=== PATIENT | male | born 1945 | race Caucasian/White ===

== ENCOUNTER 2017-03-01 12:23 | Inpatient (IN) | payer MEDICARE, MEDICAID ==
--- NOTE | 2017-03-01 12:50 | ED Physician Chart ---
ED Chief Complaint/HPI - Patient Information Date Seen:: 03/01/17 Time Seen:: 12:25 Chief Complaint:: ALOC History of Present Illness:: onset today while at [facility] and ALOC; no report of LOC, trauma, H/As, neck pain, C/P, SOB, Abd. Pain, A/N/V/D/C, fever, chills, or urinary s/s Allergies:: Allergies Allergy/AdvReac Type Severity Reaction Status Date / Time No Known Allergies Allergy Verified 03/01/17 12:43 Historian:: EMS Review:: Nurse's Note Reviewed, EMS run form Reviewed, Transfer documents Reviewed ED Review of Systems - Review of Systems General/Constitutional: Fever, No chills, No weight loss, No weakness, No diaphoresis, No edema, No loss of appetite Skin: No skin lesions, No rash, No bruising Head: No headache, No light-headedness Eyes: No loss of vision, No pain, No diplopia ENT: No earache, No nasal drainage, No sore throat, No tinnitus Neck: No neck pain, No swelling, No thyromegaly, No stiffness, No mass noted Cardio Vascular: No chest pain, No palpitations, No PND, No orthopnea, No edema Pulmonary: No SOB, Cough, No sputum, No wheezing GI: No nausea, No vomiting, No diarrhea, No pain, No melena, No hematochezia, No constipation, No hematemesis G/U: No dysuria, No frequency, No hematuria, No nacturia Musculoskeletal: No bone or joint pain, No back pain, No muscle pain Endocrine: No polyuria, No polydipsia Psychiatric: No prior psych history, No depression, No anxiety, No suicidal ideation, No homicidal ideation, No auditory hallucination, No visual hallucination Hematopoietic: No bruising, No lymphadenopathy Allergic/Immuno: No urticaria, No angioedema Neurological: No syncope, No focal symptoms, No weakness, No paresthesia, No headache, No seizure, No dizziness, Confusion, No vertigo ED Past Medical History - Past Medical History Obtainable: Yes Past Medical History: HTN, DM, CHF, Asthma/COPD, CVA/TIA, Dyslipidemia ( Dialysis Catheter Insertion; Tracheostomy), ESRD Family History: HTN Social History: Non Smoker, No Alcohol, No Drug Use, Single, Care Facility Surgical History: other Psychiatricy History: None Medication: Reviewed Family Medical History - Family Member Mother History Unknown: Yes ED Physical Exam - Physical Examination General/Constitutional: Awake, Well-developed, well-nourished, Alert, No distress, GCS 15, Non-toxic appearing, Ambulatory Head: Atraumatic Eyes: Lids, conjuctiva normal, PERRL, EOMI Skin: Nl inspection, No rash, No skin lesions, No ecchymosis, Well hydrated, No lymphadenopathy ENMT: External ears, nose nl, TM canals nl, Nasal exam nl, Lips, teeth, gums nl , Oropharynx nl, Tonsils nl Neck: Nontender, Full ROM w/o pain, No JVD, No nuchal rigidity, No bruit, No mass, No stridor Respiratory: Nl effort/Exclusion Other Respiratory comments:: Lungs: + Rales and Rhochi; L>R Cardio Vascular: No murmur, gallop, rubs, NL S1 S2, Carotid/Femoral/Distal pulses equal bilaterally Other Cardio Vascular comments:: Irregular Irregular Rhythm GI: No tenderness/rebounding/guarding, No organomegaly, No hernia, Normal BS's, Nondistended, No mass/bruits, No McBurney tenderness : No CVA tenderness Extremities: No tenderness or effusion, Full ROM, normal strength in all extremities, No edema, Normal digits & nails Neuro/Psych: Alert/oriented, DTR's symmetric, Normal sensory exam, Normal motor strength, Judgement/insight normal, Mood normal, Normal gait, No focal deficits Misc: Normal back, No paraspinal tenderness ED Labs/Radiology/EKG Results - Lab Results Comments:: WBC: 11.3. H//H: 10.8/32; BNP: 3190; Na+: 130; Glucose: 226; BUN: 80; CR: 4.3 - Radiology Results Comments:: CXR: + LLL Infiltrate - EKG Interpretations EKG Time:: 12:47 Rate & Rhythm: 119; Atrial Fibrillation Comments:: LBBB; non-specific st-t changes ED Septic Shock - . Is Septic Shock (SBP<90, OR Lactate>4 mmol\L) present?: No ED Reassessment (Disposition) - Reassessment Reassessment Condition:: Improved - Diagnosis Diagnosis:: Dx: PNA; ALOC; AMS; Atrial Fibrillation; Sepsis; UTI; Urospesis; Anemia; ESRD; Drhydration; Hyponatremia; CHF; Hyperglycemia; DM - Aftercare/Follow up Instructions Aftercare/Follow-Up Instructions:: Counseled pt regarding lab results/diagnosis & need follow up, Counseled pt & family regarding lab results/diagnosis & need follow up - Patient Disposition Discharge/Transfer:: Acute Care w/in this hosp Accepting Physician:: Dr. Laird Time Called:: 1500 Time Responded:: 15:00 Admitted to:: Telemetry Spoke to:: Dr. Laird Admitting Medical Physician:: Dr. Laird Condition at Disposition:: Stable, Improved
[2017-03-01 13:15] LABS: % EOSINOPHILS 5.1 % (0.0-5.0); % LYMPHOCYTES 8.8 % (20.0-50.0); % MONOCYTES 6.7 % (2.0-10.0); % NEUTROPHILS 79.4 % (40.0-80.0); HEMOGLOBIN 10.8 gm/dL (12-16); MEAN CELL VOLUME 87.1 fl (80-99); MEAN CORPUSCULAR HEMOGLOBIN 29.5 pg (27.0-31.0); MEAN CORPUSCULAR HGB CONC 33.8 pg (28.0-36.0); MEAN PLATELET VOLUME 8.7 fl; NEUTROPHILE ABSOLUTE 8.9 Th/cmm (1.8-8.0); PLATELET COUNT 208 Th/cmm (150-400); RED BLOOD COUNT 3.67 Mil/cmm (3.80-5.80); RED CELL DISTRIBUTION WIDTH 17.9 % (11.5-20.0); WHITE BLOOD COUNT 11.3 Th/cmm (4.8-10.8)
[2017-03-01] MEDS ORDERED: Levofloxacin 500mg/100mL 500 MG/100 ML BAG IV ONE ×2 (13:15→14:01)
[2017-03-01 13:28] LABS: ALB/GLOB RATIO 0.7 (1.0-1.8); ALKALINE PHOSPHATASE 173 U/L (34-104); ANION GAP 13.7 (7.0-16.0); BILIRUBIN,TOTAL 0.6 mg/dL (0.3-1.0); BUN/CREATININE RATIO 18.6; CALCIUM SERUM 9.4 mg/dL (8.6-10.3); CARBON DIOXIDE 25.8 mEq/L (21.0-31.0); CHLORIDE 94 mEq/L (98-107); CHOLESTEROL 82 mg/dL (<200); GLUCOSE 226 mg/dL (70-105); POTASSIUM SERUM 3.5 mEq/L (3.5-5.1); SGOT 31 U/L (13-39); SGPT/ALT 20 U/L (7-52); SODIUM SERUM 130 mEq/L (136-145); TRIGLYCERIDES 58 mg/dL (<150)
[2017-03-01 13:33] LABS: INR 1.12 (0.5-1.4); PROTHROMBIN TIME (TEST) 11.8 SECONDS (9.5-11.5)
[2017-03-01 13:40] LABS: BUN - UREA NITROGEN 80 mg/dL (7-25)
[2017-03-01 13:42] LABS: CREATININE - SERUM 4.3 mg/dL (0.7-1.3)
[2017-03-01 14:01] LABS: URINE BILIRUBIN SMALL (NEGATIVE); URINE BLOOD SMALL (NEGATIVE); URINE GLUCOSE (UA) NEGATIVE (NEGATIVE); URINE KETONE TRACE mg/dL (NEGATIVE); URINE PROTEIN 30 mg/dL (NEGATIVE); URINE UROBILINOGEN 0.2 E.U./dL (0.2 - 1.0)
[2017-03-01 14:09] LABS: URINE COLOR YELLOW
[2017-03-01 14:10] LABS: URINE BACTERIA 1+ /hpf (NONE SEEN); URINE EPITHELIAL CELLS OCCASIONAL /lpf (FEW); URINE RBC 25-50 /hpf (0-5)
[2017-03-01 14:11] LABS: URINE AMORPHOUS SEDIMENT FEW URATES (NONE SEEN)
[2017-03-01] MEDS ORDERED: Sodium Chloride 0.9% 1,000 ML IV SCH ×3 (16:35→19:45)
[2017-03-01 17:58] VITALS: BP 130/91
[2017-03-01] MEDS: Albuterol/Ipratropium Neb 3 ML AERS HHN SCH ×2 (19:01→22:48)
[2017-03-01] MEDS ORDERED: Diltiazem 5 mg/mL 5mL Vial IVP STA (19:18)
[2017-03-01] MEDS ORDERED: ONDANSETRON HCL 4 MG GT PRN (19:40)
[2017-03-01] MEDS ORDERED: Diltiazem 5 mg/mL 5mL Vial IVP ONE (20:30)
[2017-03-01] MEDS: Atorvastatin Calcium 10 MG TAB PO SCH (20:59)
[2017-03-01] MEDS ORDERED: Non-Formulary Item 1 EA (Atorvastatin Calcium [Lipitor] 20 MG) GT SCH (21:00)
[2017-03-01] MEDS ORDERED: Diltiazem 5 mg/mL 5mL Vial IVP PRN (21:31)
[2017-03-01] MEDS ORDERED: Guaifenesin DM 10 ML UDC ONE (23:42)
[2017-03-01] MEDS: Guaifenesin DM 10 ML UDC PO PRN (23:43)
[2017-03-02] MEDS ORDERED: Albumin 25% 25gm/100mL 25 GM/100 ML BTL IV PRN
[2017-03-02] MEDS ORDERED: methylPREDNISolone SS 40 mg Vial ONE ×2 (00:01→05:18)
[2017-03-02] MEDS: methylPREDNISolone SS 40 mg Vial IVP SCH ×4 (00:03→17:25)
[2017-03-02] MEDS: Albuterol/Ipratropium Neb 3 ML AERS HHN SCH ×6 (02:52→23:34)
--- NOTE | 2017-03-02 05:01 | Consultation ---
DATE OF CONSULTATION: 03/01/2017 HISTORY OF PRESENT ILLNESS: This 72-year-old male was seen and examined at the courtesy of Dr. Laird. The patient was admitted through Emergency Room and was brought to the Emergency Room with altered level of consciousness and shortness of breath. He was found to be in atrial fibrillation with rapid ventricular response. 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 He has chronic atrial fibrillation, has been on Xarelto, history of hypothyroidism, history of benign prostatic hypertrophy, history of GERD, chronic anemia, stage 3 sacral decubitus and stage 2 left trochanteric decubitus. He has a tracheostomy done, has been on chronic respiratory failure on ventilator. He has a PEG also and Perm-A-Cath and he was evaluated in the Emergency Room. He was given IV Cardizem as well as IV Lanoxin to control the heart rate. PAST MEDICAL HISTORY: As mentioned above. SOCIAL HISTORY: The patient denies any history smoking or drinking. FAMILY HISTORY: Unremarkable. ALLERGIES: Amiodarone. REVIEW OF SYSTEMS: The patient is unable to give any information. PHYSICAL EXAMINATION: VITAL SIGNS: Heart rate above 100, blood pressure is 116/70. SKIN: Normal. HEAD: Normocephalic. EYES: Conjunctivae pink. There is no icterus in the eye. Pupils equally reactive to light. NECK: There was no increased jugular venous distention or thyromegaly. No lymphadenopathy. Carotids equal both sides. CHEST: Bilaterally symmetrical, moved well with respirations. Respiratory movements equal both sides. Trachea is central. There is note to percussion. Breath sound; bilateral rales and rhonchi. CARDIOVASCULAR SYSTEM: PMI not well localized and no positional thrill. No parasternal heave. S1 normal, S2 physiologic. There was no S3, no rub. ABDOMEN: Soft. No tenderness, no rigidity. No guarding, no organomegaly. Bowel sounds normal. PEG in place. EXTREMITIES: No edema. Discoloration of lower extremities. Peripheral pulses diminished. No calf tenderness. IMPRESSION: Altered level of consciousness, atrial fibrillation with rapid ventricular response, very mild elevation of troponin level, diabetes mellitus, hypertension, end-stage renal disease, on hemodialysis; history of chronic obstructive pulmonary disease; hypothyroidism; benign prostatic hypertrophy; history of gastroesophageal reflux disease, chronic anemia, old cerebrovascular accident with right-sided hemiplegia; history of laparoscopic gastrostomy, chronic respiratory failure, decubitus ulcer status post PEG, status post Perm-A-Cath. Will ask the patient to continue Cardizem to control the heart rate. Will put him on regular doses of Cardizem, digoxin if needed. The patient is already on beta eliseo, to continue that 12.5 b.i.d. The patient is also on DEMETRIO inhibitor, Lasix, and nitrates. The patient's LDL was 39 only. We will get echocardiogram in the morning to evaluate left ventricular function and valvular structure. Repeat EKG and troponin, TSH. Further recommendation will be made depending on the rest of the tests available. [facility]# [id number]
[2017-03-02] MEDS ORDERED: Diltiazem 30 mg Tab ONE (05:17)
[2017-03-02] MEDS: Diltiazem 30 mg Tab PO SCH ×3 (05:19→20:44)
[2017-03-02 05:30] LABS: HEMATOCRIT 32.6 % (41.0-60); HEMOGLOBIN 11.3 gm/dL (12-16); MEAN CELL VOLUME 89.5 fl (80-99); MEAN CORPUSCULAR HEMOGLOBIN 30.9 pg (27.0-31.0); MEAN CORPUSCULAR HGB CONC 34.6 pg (28.0-36.0); MEAN PLATELET VOLUME 9.5 fl; NEUTROPHILE ABSOLUTE 13.6 Th/cmm (1.8-8.0); PLATELET COUNT 200 Th/cmm (150-400); RED BLOOD COUNT 3.64 Mil/cmm (3.80-5.80); RED CELL DISTRIBUTION WIDTH 17.7 % (11.5-20.0)
[2017-03-02 05:31] LABS: ALB/GLOB RATIO 0.7 (1.0-1.8); ALKALINE PHOSPHATASE 141 U/L (34-104); ANION GAP 12.1 (7.0-16.0); BILIRUBIN,TOTAL 0.7 mg/dL (0.3-1.0); BUN/CREATININE RATIO 17.5; CALCIUM SERUM 9.1 mg/dL (8.6-10.3); CHLORIDE 94 mEq/L (98-107); GLUCOSE 247 mg/dL (70-105); MAGNESIUM 2.4 mg/dL (1.9-2.7); PHOSPHOROUS 2.9 mg/dL (2.5-5.0); POTASSIUM SERUM 4.1 mEq/L (3.5-5.1); SGOT 22 U/L (13-39); SGPT/ALT 22 U/L (7-52); SODIUM SERUM 129 mEq/L (136-145)
[2017-03-02 05:42] LABS: BUN - UREA NITROGEN 84 mg/dL (7-25); CREATININE - SERUM 4.8 mg/dL (0.7-1.3)
[2017-03-02 05:43] LABS: WHITE BLOOD COUNT 14.4 Th/cmm (4.8-10.8)
[2017-03-02 06:51] LABS: BAND NEUTROPHILE 2 % (0-10); NEUTROPHILS 88 % (40-80); PLATELET ESTIMATE ADEQUATE (NORMAL); TOTAL CELLS COUNTED 100
[2017-03-02 08:24] LABS: INR 1.15 (0.5-1.4); PROTHROMBIN TIME (TEST) 12.1 SECONDS (9.5-11.5)
[2017-03-02] MEDS: Vitamin B Complex w/Vitamin C Tab GT SCH (08:46)
[2017-03-02] MEDS: Pantoprazole 40 mg/Packet GT SCH (08:46)
[2017-03-02] MEDS: Guaifenesin DM 10 ML UDC PO PRN ×2 (08:50→17:54)
--- NOTE | 2017-03-02 08:53 | Diagnostic Imaging Report ---
CHEST X-RAY: AP view INDICATION: pain COMPARISON: None FINDINGS: Right dialysis catheter is seen with tip in SVC. Tracheostomy tube is noted. Congestive changes are seen with small bilateral effusions. No focal consolidation identified. Cardiomegaly is noted. Degenerative changes of the spine are noted. IMPRESSION: Congestive changes with small bilateral effusions. Hazy infiltrate of the right lower lung zone cannot be excluded. Cardiomegaly. Right Dialysis catheter noted.
[2017-03-02] MEDS ORDERED: Pneumococcal Vaccine 0.5 mL Vial IM ONE (09:00)
--- NOTE | 2017-03-02 09:04 | Diagnostic Imaging Report ---
CHEST X-RAY: AP view INDICATION: Left infiltrates COMPARISON: Chest x-ray 03/01/2017 FINDINGS: Support devices are stable. Mild worsening of CHF is noted with small left effusion developing left lung hazy infiltrate. Cardiomegaly is noted. IMPRESSION: Mild worsening in CHF with small left effusion developing left lung infiltrates. Cardiomegaly.
--- NOTE | 2017-03-02 10:26 | Diagnostic Imaging Report ---
Head CT without intravenous contrast Indication: Altered level of consciousness Comparison: None Technique: Axial images were obtained from the vertex to the skull base without IV contrast. Coronal reconstructions were made. Total DLP: [id number], [id number] FINDINGS: Images of the brain obtained without contrast demonstrate no evidence of acute hemorrhage. Atrophy is noted. Old infarcts and encephalomalacia is seen throughout the left frontal lobe and extending to the left anterior parietal lobe. Additional areas of encephalomalacia of the left occipital lobe are noted. Calcifications are seen within these regions along the gyri which may have been sequela of old infarcts. Old left basal ganglia infarcts are also noted. The ventricles and basal cisterns are patent. No mass effect or midline shift. Atherosclerosis is noted. There is partial opacification of left sphenoid sinus. There is mucosal thickening of the paranasal sinuses. There is opacification of left mastoid air cells. Mild atherosclerosis is noted. IMPRESSION: No evidence of an acute intracranial hemorrhage. Areas of encephalomalacia throughout the left cerebral hemisphere likely due to old infarcts. Calcifications are seen in this region are also likely sequela of old infarcts. Old left basal ganglia infarct. Atrophy. Atherosclerotic vascular disease. Mild Paranasal sinus inflammatory disease greatest within the left sphenoid sinus. Left mastoid air cell disease.
--- NOTE | 2017-03-02 13:20 | History and Physical ---
History of Present Illness - HPI Chief Complaint: AMS and ALOC HPI: Patient was ready to get HD but had ALOC and was transferred to ER for Evaluation. In ER was found that patient had sepsis possible secondary to PNA, and A-fib. Vital Signs: Last Vital Signs Temp 97.8 F 03/02/17 12:00 Pulse 117 03/02/17 12:08 Resp 27 03/02/17 12:00 BP 133/84 03/02/17 12:00 Pulse Ox 100 03/02/17 12:00 Past Medical History Cardiovascular: Report: AFIB, CHF Pulmonary: Report: Other (Patient has a permanent tracheostomy on ventilator.) [employer] DIRECT[employer]: Report: No Pertinent Hx GI: Report: Other (PEG in place) Psych: Report: Anxiety Rheumatologic: Report: No pertinent Hx Infectious Disease: Report: No Pertinent Hx Renal/: Report: Chronic Renal Failure, Other (On HD) Endocrine: Report: Diabetes Dermatology: Report: No Pertinent Hx - Past Surgical History Past Surgical History: No pertinent Hx Family Medical History - Family Member Mother History Unknown: Yes Social History Smoke: No Alcohol: None Drugs: None Lives: Longterm Domestic Violence: Negative - Medications Home Medications: Home Medication Medication Instructions Recorded Type Acetaminophen [Tylenol 650 mg PO Q4HR PRN 03/01/17 History 650mg/20.3mL Suspension] Atorvastatin Calcium [Lipitor] 20 mg GT HS 03/01/17 History Bisacodyl [Dulcolax 10 Mg Supp] 10 RC DAILY PRN 03/01/17 History Lansoprazole [Prevacid] 30 mg GT DAILY 03/01/17 History Levetiracetam [Keppra] 500 GT Q12HRT 03/01/17 History Losartan Potassium [Cozaar] 50 mg GT Q12HR 03/01/17 History Metoclopramide [Reglan] 5 mg GT Q6HR 03/01/17 History Metoprolol Tartrate [Lopressor] 50 mg PO DAILY 03/01/17 History Ondansetron HCl [Zofran] 4 mg GT Q6HR 03/01/17 History Vitamin B Complex w/Vitamin C 1 tab GT DAILY 03/01/17 History amLODIPine Besylate [Norvasc] 5 GT Q12HR 03/01/17 History cloNIDine HCl [Catapres] 0.1 mg PO Q12HR 03/01/17 History - Allergies Allergies/Adverse Reactions: Allergies Allergy/AdvReac Type Severity Reaction Status Date / Time amiodarone Allergy Verified 03/02/17 08:20 Review of Systems - Review of Systems Constitutional: Report: Weakness Eyes: Report: No Significant ENT: Report: No Significant Respiratory: Report: Other (Tracheostomy in place) Cardiovascular: Report: Palpitations Gastrointestinal: Report: No Significant Genitourinary: Report: No Significant Musculoskeletal: Report: No Significant Skin: Report: No Significant Neurological: Report: Weakness Physical Exam - Physical Exam HEENT: Report: Ears Nose Throat within normal limits Neck: Report: Tracheostomy site noted to be clean Cardiovascular Systems: Report: Irregular rhythm was noted Respiratory: Report: Wheezing, Crackles Back: Report: Inspection of back is within normal limits. Extremities: Report: Non-tender to palpation. Skin: Report: Color of skin is within normal limits, Warm, Dry Neuro/Psych: Report: Other (Patient is anxious) - Lab Results All Lab Results last 24 hours: Laboratory Results - last 24 hr 03/02/17 03/02/17 03/02/17 04:30 04:30 04:30 WBC 14.4 H D RBC 3.64 L Hgb 11.3 L Hct 32.6 L MCV 89.5 MCH 30.9 MCHC Differential 34.6 RDW 17.7 Plt Count 200 MPV 9.5 Band Neutrophils % 2 Neutrophils (Manual) 88 H Lymphocytes 5 L Monocytes 5 Platelet Estimate ADEQUATE PT INR Sodium 129 L Potassium 4.1 Chloride 94 L Carbon Dioxide 27.0 Anion Gap 12.1 BUN 84 H* Creatinine 4.8 H* Est GFR ( Amer) TNP Est GFR (Non-Af Amer) TNP BUN/Creatinine Ratio 17.5 Glucose 247 H Calcium 9.1 Phosphorus 2.9 Magnesium 2.4 Total Bilirubin 0.7 AST 22 ALT 22 Alkaline Phosphatase 141 H Troponin I Total Protein 7.8 Albumin 3.1 L Globulin 4.7 Albumin/Globulin Ratio 0.7 L TSH 5.36 03/02/17 03/02/17 04:30 08:00 WBC RBC Hgb Hct MCV MCH MCHC Differential RDW Plt Count MPV Band Neutrophils % Neutrophils (Manual) Lymphocytes Monocytes Platelet Estimate PT 12.1 H INR 1.15 Sodium Potassium Chloride Carbon Dioxide Anion Gap BUN Creatinine Est GFR ( Amer) Est GFR (Non-Af Amer) BUN/Creatinine Ratio Glucose Calcium Phosphorus Magnesium Total Bilirubin AST ALT Alkaline Phosphatase Troponin I 0.08 H* D Total Protein Albumin Globulin Albumin/Globulin Ratio TSH - Assessment Assessment: Patient is awake, alert, calm. Dx: Sepsis possible secondary to PNA, Afib, ALOC , Anemia, ESRD, DM, Hyponatremia. - Plan Plan: Patient is in ICU due to A-Fib, on IV NS, AB, PEG nutrition, on Carvedilol, Diltiazem, and SNF meds. He is follow by Pulmonology, Nephro, Cardio. Will continue to monitor.
[2017-03-02] MEDS: cefTRIAXone 1 GM in Sodium Chloride 0.9% 50 ML IV SCH (16:01)
--- NOTE | 2017-03-02 16:03 | General Progress Note ---
Subjective - Review of Systems Service Date: 03/02/17 Subjective: more awake, on T-piece Objective - Results Result Diagrams: 03/02/17 04:30 03/02/17 04:30 Recent Labs: Laboratory Last Values WBC 14.4 Th/cmm (4.8-10.8) H D 03/02/17 04:30 RBC 3.64 Mil/cmm (3.80-5.80) L 03/02/17 04:30 Hgb 11.3 gm/dL (12-16) L 03/02/17 04:30 Hct 32.6 % (41.0-60) L 03/02/17 04:30 MCV 89.5 fl (80-99) 03/02/17 04:30 MCH 30.9 pg (27.0-31.0) 03/02/17 04:30 MCHC Differential 34.6 pg (28.0-36.0) 03/02/17 04:30 RDW 17.7 % (11.5-20.0) 03/02/17 04:30 Plt Count 200 Th/cmm (150-400) 03/02/17 04:30 MPV 9.5 fl 03/02/17 04:30 Neutrophils % 79.4 % (40.0-80.0) 03/01/17 13:07 Band Neutrophils % 2 % (0-10) 03/02/17 04:30 Lymphocytes % 8.8 % (20.0-50.0) L 03/01/17 13:07 Monocytes % 6.7 % (2.0-10.0) 03/01/17 13:07 Eosinophils % 5.1 % (0.0-5.0) H 03/01/17 13:07 Basophils % 0.0 % (0.0-2.0) 03/01/17 13:07 Neutrophils (Manual) 88 % (40-80) H 03/02/17 04:30 Lymphocytes 5 % (20-50) L 03/02/17 04:30 Monocytes 5 % (2-10) 03/02/17 04:30 Platelet Estimate ADEQUATE (NORMAL) 03/02/17 04:30 PT 12.1 SECONDS (9.5-11.5) H 03/02/17 08:00 INR 1.15 (0.5-1.4) 03/02/17 08:00 PTT (Actin FS) 25.8 SECONDS (26.0-38.0) L 03/01/17 13:07 Sodium 129 mEq/L (136-145) L 03/02/17 04:30 Potassium 4.1 mEq/L (3.5-5.1) 03/02/17 04:30 Chloride 94 mEq/L (98-107) L 03/02/17 04:30 Carbon Dioxide 27.0 mEq/L (21.0-31.0) 03/02/17 04:30 Anion Gap 12.1 (7.0-16.0) 03/02/17 04:30 BUN 84 mg/dL (7-25) H* 03/02/17 04:30 Creatinine 4.8 mg/dL (0.7-1.3) H* 03/02/17 04:30 Est GFR ( Amer) TNP 03/02/17 04:30 Est GFR (Non-Af Amer) TNP 03/02/17 04:30 BUN/Creatinine Ratio 17.5 03/02/17 04:30 Glucose 247 mg/dL (70-105) H 03/02/17 04:30 Hemoglobin A1c % 6.2 % (4.0-6.0) H 03/01/17 13:50 Whole Bld Lactic Acid 1.00 mmol/L (0.60-1.99) 03/01/17 13:16 Calcium 9.1 mg/dL (8.6-10.3) 03/02/17 04:30 Phosphorus 2.9 mg/dL (2.5-5.0) 03/02/17 04:30 Magnesium 2.4 mg/dL (1.9-2.7) 03/02/17 04:30 Total Bilirubin 0.7 mg/dL (0.3-1.0) 03/02/17 04:30 AST 22 U/L (13-39) 03/02/17 04:30 ALT 22 U/L (7-52) 03/02/17 04:30 Alkaline Phosphatase 141 U/L (34-104) H 03/02/17 04:30 Creatine Kinase 74 U/L (30-223) 03/01/17 13:07 Troponin I 0.07 ng/mL (0.01-0.05) H* D 03/02/17 13:05 B-Natriuretic Peptide 3190.0 pg/mL (5.0-100.0) H 03/01/17 13:07 Total Protein 7.8 gm/dL (6.0-8.3) 03/02/17 04:30 Albumin 3.1 gm/dL (4.2-5.5) L 03/02/17 04:30 Globulin 4.7 gm/dL 03/02/17 04:30 Albumin/Globulin Ratio 0.7 (1.0-1.8) L 03/02/17 04:30 Triglycerides 58 mg/dL (<150) 03/01/17 13:07 Cholesterol 82 mg/dL (<200) 03/01/17 13:07 LDL Cholesterol Direct 39 mg/dL (75-193) L 03/01/17 13:07 HDL Cholesterol 35 mg/dL (23-92) 03/01/17 13:07 TSH 5.36 uIU/ml (0.34-5.60) 03/02/17 04:30 Urine Source MIDSTREAM 03/01/17 13:58 Urine Color YELLOW 03/01/17 13:58 Urine Clarity HAZY (CLEAR) 03/01/17 13:58 Urine pH 5.0 (4.6 - 8.0) 03/01/17 13:58 Ur Specific [place] 1.020 (1.005-1.030) 03/01/17 13:58 Urine Protein 30 mg/dL (NEGATIVE) H 03/01/17 13:58 Urine Glucose (UA) NEGATIVE mg/dL (NEGATIVE) 03/01/17 13:58 Urine Ketones TRACE mg/dL (NEGATIVE) 03/01/17 13:58 Urine Blood SMALL (NEGATIVE) H 03/01/17 13:58 Urine Nitrate NEGATIVE (NEGATIVE) 03/01/17 13:58 Urine Bilirubin SMALL (NEGATIVE) H 03/01/17 13:58 Urine Urobilinogen 0.2 E.U./dL (0.2 - 1.0) 03/01/17 13:58 Ur Leukocyte Esterase TRACE (NEGATIVE) H 03/01/17 13:58 Urine RBC 25-50 /hpf (0-5) H 03/01/17 13:58 Urine WBC 6-10 /hpf (0-5) H 03/01/17 13:58 Ur Epithelial Cells OCCASIONAL /lpf (FEW) 03/01/17 13:58 Amorphous Sediment FEW URATES (NONE SEEN) 03/01/17 13:58 Urine Bacteria 1+ /hpf (NONE SEEN) H 03/01/17 13:58 Urine Mucus FEW /lpf (FEW) 03/01/17 13:58 - Physical Exam Vitals and I&O: Vital Signs Temp 97.8 F 03/02/17 12:00 Pulse 117 03/02/17 12:08 Resp 27 03/02/17 12:00 BP 133/84 03/02/17 12:00 Pulse Ox 98 03/02/17 14:00 Intake & Output 03/01/17 03/02/17 03/02/17 18:59 06:59 18:59 Intake Total 800 Output Total 400 Balance 400 Weight (lbs) 87.742 kg Intake: Oral 0 Tube Feeding 600 Other 200 Output: Urine 400 Other: # Bowel Movements 2 Stool Characteristics Liquid Brown Active Medications: Current Medications Acetaminophen (Tylenol 650mg/20.3ml Suspension) 650 mg PO Q4HR PRN PRN Reason: Pain or Fever >101 Stop: 04/30/17 19:39 Last Admin: 03/02/17 02:28 Dose: 650 mg Albuterol/Ipratropium (Duoneb Neb) 1.5 ml HHN Q6HR PENDING SALE TO [facility] Stop: 04/30/17 18:59 Atorvastatin Calcium (Lipitor) 20 mg PO HS PENDING SALE TO [facility] Stop: 04/30/17 20:59 Last Admin: 03/01/17 20:59 Dose: 20 mg Carvedilol (Coreg) 12.5 mg PO BID PENDING SALE TO [facility] Stop: 04/30/17 19:44 Last Admin: 03/02/17 10:33 Dose: Not Given Diltiazem HCl (Cardizem) 10 mg IVP Q4H PRN PRN Reason: HR ABOVE 130 Stop: 04/30/17 21:44 Diltiazem HCl (Cardizem) 30 mg PO Q8HR PENDING SALE TO [facility] Stop: 05/01/17 04:59 Last Admin: 03/02/17 12:08 Dose: 30 mg Guaifenesin/Dextromethorphan (Robitussin Dm) 5 ml PO Q6HR PRN PRN Reason: Cough Stop: 04/30/17 23:29 Last Admin: 03/02/17 08:50 Dose: 5 ml Levofloxacin (Levaquin Pb) 500 mg in 100 mls @ 100 mls/hr IV Q48HR PENDING SALE TO [facility] Stop: 05/02/17 08:59 Sodium Chloride (Nacl 0.9%) 1,000 mls @ 40 mls/hr IV .Q24H PRAVIN Stop: 04/30/17 16:34 Last Admin: 03/02/17 13:55 Dose: 40 mls/hr Albumin Human (Albuminar 25%) 25 gm in 100 mls @ 50 mls/hr IV PRN PRN PRN Reason: BP Support During HD Stop: 03/02/17 23:59 Ceftriaxone Sodium 1 gm/ (Sodium Chloride) 50 mls @ 100 mls/hr IV Q24HR PENDING SALE TO [facility] Stop: 05/01/17 12:44 Levetiracetam (Keppra) 500 mg NG BID PENDING SALE TO [facility] Stop: 05/01/17 16:59 Lorazepam (Ativan) 0.5 mg GT Q8H PRN; Protocol PRN Reason: Agitation Stop: 04/30/17 21:17 Last Admin: 03/02/17 08:46 Dose: 0.5 mg Lorazepam (Ativan) 1 mg IVP Q6HR PRN; Protocol PRN Reason: Anxiety Stop: 05/01/17 13:24 Last Admin: 03/02/17 13:42 Dose: 1 mg Methylprednisolone Sodium Succinate (Solu-Medrol) 40 mg IVP Q6HR PRAVNI Stop: 05/01/17 00:00 Last Admin: 03/02/17 11:13 Dose: 40 mg Miscellaneous (Clinical Monitoring) 1 ea MYKEL DAILY PRN PRN Reason: RENAL Stop: 04/30/17 17:00 Ondansetron HCl (Zofran Odt) 4 mg PO Q6H PRN PRN Reason: Nausea / Vomiting Stop: 04/30/17 20:01 Pantoprazole Sodium (Protonix) 40 mg GT DAILY PENDING SALE TO [facility] Stop: 05/01/17 08:59 Last Admin: 03/02/17 08:46 Dose: 40 mg Vitamin B Complex/Vit C/Folic Acid (Vitamin B Complex W/Vitamin C) 1 tab GT DAILY PRAVIN Stop: 05/01/17 08:59 Last Admin: 03/02/17 08:46 Dose: 1 tab Warfarin Sodium (Coumadin Per Pharmacy) 1 ea MC PRN PRN; Protocol PRN Reason: RX MONITORING Stop: 04/30/17 19:19 General: Alert, Mild distress HEENT: Atraumatic, PERRLA, EOMI Neck: Supple, +2 carotid pulse wo bruit Cardiovascular: Other (irregularly, irregular, tachy) Lungs: Other (rhonchi, congestion) Abdomen: Bowel sounds, Soft Extremities: no Edema Neurological: Sensation intact Skin: no Rash Psych/Mental Status: Mood NL Assessment/Plan - Assessment Assessment: ESRD on HD chronic A. Fib w/ RVR - Plan Plan: Lab - Result Diagrams 03/02/17 04:30 03/02/17 04:30 Current Medications Acetaminophen (Tylenol 650mg/20.3ml Suspension) 650 mg PO Q4HR PRN PRN Reason: Pain or Fever >101 Stop: 04/30/17 19:39 Last Admin: 03/02/17 02:28 Dose: 650 mg Albuterol/Ipratropium (Duoneb Neb) 1.5 ml HHN Q6HR PENDING SALE TO [facility] Stop: 04/30/17 18:59 Atorvastatin Calcium (Lipitor) 20 mg PO HS PENDING SALE TO [facility] Stop: 04/30/17 20:59 Last Admin: 03/01/17 20:59 Dose: 20 mg Carvedilol (Coreg) 12.5 mg PO BID PENDING SALE TO [facility] Stop: 04/30/17 19:44 Last Admin: 03/02/17 10:33 Dose: Not Given Diltiazem HCl (Cardizem) 10 mg IVP Q4H PRN PRN Reason: HR ABOVE 130 Stop: 04/30/17 21:44 Diltiazem HCl (Cardizem) 30 mg PO Q8HR PENDING SALE TO [facility] Stop: 05/01/17 04:59 Last Admin: 03/02/17 12:08 Dose: 30 mg Guaifenesin/Dextromethorphan (Robitussin Dm) 5 ml PO Q6HR PRN PRN Reason: Cough Stop: 04/30/17 23:29 Last Admin: 03/02/17 08:50 Dose: 5 ml Levofloxacin (Levaquin Pb) 500 mg in 100 mls @ 100 mls/hr IV Q48HR PENDING SALE TO [facility] Stop: 05/02/17 08:59 Sodium Chloride (Nacl 0.9%) 1,000 mls @ 40 mls/hr IV .Q24H PENDING SALE TO [facility] Stop: 04/30/17 16:34 Last Admin: 03/02/17 13:55 Dose: 40 mls/hr Albumin Human (Albuminar 25%) 25 gm in 100 mls @ 50 mls/hr IV PRN PRN PRN Reason: BP Support During HD Stop: 03/02/17 23:59 Ceftriaxone Sodium 1 gm/ (Sodium Chloride) 50 mls @ 100 mls/hr IV Q24HR PRAVIN Stop: 05/01/17 12:44 Levetiracetam (Keppra) 500 mg NG BID PRAVIN Stop: 05/01/17 16:59 Lorazepam (Ativan) 0.5 mg GT Q8H PRN; Protocol PRN Reason: Agitation Stop: 04/30/17 21:17 Last Admin: 03/02/17 08:46 Dose: 0.5 mg Lorazepam (Ativan) 1 mg IVP Q6HR PRN; Protocol PRN Reason: Anxiety Stop: 05/01/17 13:24 Last Admin: 03/02/17 13:42 Dose: 1 mg Methylprednisolone Sodium Succinate (Solu-Medrol) 40 mg IVP Q6HR PRAVIN Stop: 05/01/17 00:00 Last Admin: 03/02/17 11:13 Dose: 40 mg Miscellaneous (Clinical Monitoring) 1 ea MC DAILY PRN PRN Reason: RENAL Stop: 04/30/17 17:00 Ondansetron HCl (Zofran Odt) 4 mg PO Q6H PRN PRN Reason: Nausea / Vomiting Stop: 04/30/17 20:01 Pantoprazole Sodium (Protonix) 40 mg GT DAILY PRAVIN Stop: 05/01/17 08:59 Last Admin: 03/02/17 08:46 Dose: 40 mg Vitamin B Complex/Vit C/Folic Acid (Vitamin B Complex W/Vitamin C) 1 tab GT DAILY PRAVIN Stop: 05/01/17 08:59 Last Admin: 03/02/17 08:46 Dose: 1 tab Warfarin Sodium (Coumadin Per Pharmacy) 1 ea PRN PRN; Protocol PRN Reason: RX MONITORING Stop: 04/30/17 19:19 Lab - Result Diagrams 03/02/17 04:30 03/02/17 04:30 pt. was dialyzed today & tolerated it well reschedule for HD in am due to increasing CHF on CXR F/U electrolytes, cbc in am Nutritional Asmnt/Malnutr-PDOC - Dietary Evaluation Malnutrition Findings (Please click <Entered> for more info): Nutritional Asmnt/Malnutrition Start: 03/02/17 12: 17 Text: Status: Complete Freq: Document 03/02/17 12:17 ARMANDO (Rec: 03/02/17 12:33 LCNICOLEG [email or web address]) Nutritional Asmnt/Malnutrition Patient General Information Nutritional Screening High Risk Consult Diagnosis PNA, ALOC, AMS, A fib, Sepsis, UTI, Anemia, dyhydration Pertinent Medical Hx/Surgical Hx HTN, DM, CHF, asthma/COPD, CVA /TIA, dyslipidemia, ESRD on dialysis, PEG Subjective Information Consult received for high blood glucose. Pt seen resting in bed, not able to communicate, on dialysis during the time of visit. Not able to perform physical exam at this time, pt appeared no fat/muscle wasting on shouder. Spoke with RN, pt is tolerating TF well, no residual noted. Current Diet Order/ Nutrition Support Novosource Renal at 60ml/hr x 20hr daily, providing 2400kcal and 109g pro Pertinent Medications Nacl IV, Vit B, Vit C, folic acid, warfarin Pertinent Labs 03/02 Na 129L, Cl 94L, BUN 84H , Cr 4.9H, Glu 247, A1c 6.2, Alb 3.1L Nutritional Hx/Data Height 1.75 m Height (Calculated Centimeters) 175.3 Current Weight (lbs) 87.747 kg Weight (Calculated Kilograms) 87.7 Weight (Calculated Grams) 15474.4 [place] Body Weight 160 % [place] Body Weight 120 Body Mass Index (BMI) 28.5 GI Symptoms GI Symptoms None Last BM 03/02 x 2 Skin Integrity/Comment: reddened area on left chest, left foot, pressure area on coccyx Estimated Nutritional Goals BEE in Kcals: Using Current wt Calories/Kcals/Kg 30-32 Kcals Calculated [id number] Protein: Using Current wt Protein g/k-1.2 Protein Calculated 88-106 Fluid: ml [id number] or per MD Nutritional Problem 1. Problem Problem altered nutrition related labs values Etiology hx of ESRD and DM Signs/Symptoms: BUN 84H, Cr 4.9H, Glu 247, A1c 6.2 Malnutrition Alert Protein-Calorie Malnutrition N/A Is there a minimum of two criteria No selected? Query Text:Check all the applicable criteria. A minimum of two criteria are recommended for diagnosis of either severe or non-severe malnutrition. Intervention/Recommendation Comments 1. continue with current TF regimen. It provides 1200ml total volume, 2400kcal, 109g protein, 860ml water, meeting 100% of nutritional needs. 2. Monitor TF rate, tolerance, labs, skin integrity and wt daily 3. adjust insulin as needed for optimal glycemic control 4. F/U as high risk in 2-3 days, 03/04-03/05 Expected Outcomes/Goals Expected Outcomes/Goals 1. pt to meet at least 75% of nutritional needs via nutrition support with tolerance 2. wt stability, skin to remain intact, labs to improve
[2017-03-02] MEDS ORDERED: Albuterol/Ipratropium Neb 3 ML AERS HHN ONE (16:43)
[2017-03-02] MEDS: Levetiracetam 500 mg/5mL 5mL UDC NG SCH (17:25)
--- NOTE | 2017-03-02 17:38 | Consultation ---
DATE OF CONSULTATION: 03/01/2017 REFERRING PHYSICIAN: Dr. Mart. Thank you very much for this consultation. HISTORY OF PRESENT ILLNESS: This is a 72-year-old male with history of CVA, COPD, chronic respiratory failure, chronic tracheostomy, presents with shortness of breath, congestion, admitted for further treatment and management. The patient appears to be doing okay now, still have some secretions. The patient is on dialysis and end-stage renal disease. PAST MEDICAL HISTORY: As above. SOCIAL HISTORY: correction resident. REVIEW OF SYSTEMS: Unable to obtain because of the patient's condition. PHYSICAL EXAMINATION: GENERAL: The patient is awake, but not in acute distress. VITAL SIGNS: Temperature 98.4, pulse of 62, respiration is 16, blood pressure 94/69, saturation 100%. HEENT: Atraumatic, normocephalic. Pupils react to light and accommodation. Ears, nose, and throat normal. NECK: Supple. No JVD. CHEST: There is rhonchi in bases. HEART: Regular. ABDOMEN: Soft. EXTREMITIES: No edema. LABORATORY DATA: WBC is 11.3, hemoglobin is 10.8. Sodium is 133.5, creatinine 4.3. I do not see a chest x-ray on this patient. IMPRESSION: 1. Respiratory failure. 2. Possible pneumonia. 3. Dysphagia. 4. Weakness. PLAN: 1. IV antibiotics. 2. Nebulizer treatment. 3. Pulmonary toilet. 4. Tracheostomy care. JOB# [id number]
--- NOTE | 2017-03-02 19:20 | Consultation ---
DATE OF CONSULTATION: 03/01/2017 JEWEL SAWYER: Hector Crawford M.D. REASON FOR CONSULTATION: Electrolyte imbalance and fluid management. HISTORY OF PRESENT ILLNESS: This is a 72-year-old male with past medical history of end-stage renal disease, on hemodialysis, who was brought in because of altered level of consciousness. A few hours prior to admission, the patient was noted by dialysis staff to develop altered level of consciousness. He was then brought to the Emergency Room. His white count was 11.3 with a temperature of 98.8 degrees. Per ER physician, chest x-ray revealed left lower lobe infiltrate. PAST MEDICAL HISTORY: 1. End-stage renal disease, on hemodialysis. 2. Type 2 diabetes mellitus. 3. Essential hypertension. 4. Status post cerebrovascular accident with right hemiplegia. 5. COPD. 6. Chronic atrial fibrillation. 7. Hypothyroidism. 8. BPH. 9. GERD. 10. Anemia of chronic disease. 11. Stage III decubitus ulcer. 12. Stage II left trochanteric decubitus ulcer. 13. Respiratory failure on T-piece. PAST SURGICAL HISTORY: 1. Status post tracheostomy. 2. Status post PEG placement. 3. Status post Perm-A-Cath. CURRENT MEDICATIONS: He is currently on albuterol, ipratropium, levofloxacin. ALLERGIES: No known drug allergies. SOCIAL AND FAMILY HISTORY: I was unable to obtain directly from the patient because he remains nonverbal. REVIEW OF SYSTEMS: Again, I was not able to decipher directly from the patient because of above reasons. PHYSICAL EXAMINATION: GENERAL: The patient is quite stuporous, but arousable, mild tachypnea. VITAL SIGNS: His blood pressure is 130/91, pulse irregularly irregular at 120, temperature 98.2 degrees. SKIN: Good turgor, warm, no rash, no jaundice appreciated. HEENT: Head normocephalic, atraumatic. Eyes: Extraocular muscles intact. Pupils equal, round, reactive to light and accommodates. Anicteric sclerae, pale conjunctivae. Nose, midline nasal septum. Mouth, moist mucosa with poor dentition. NECK: Supple, no adenopathy, no thyromegaly, no bruits. Trachea palpated in the midline. Presence of tracheostomy tube on, T-piece. CHEST AND CARDIOVASCULAR: Irregularly irregular. S1, S2. No rub, murmur, or gallop appreciated. Point of maximal impulse fifth intercostal space, left midclavicular line. No abdominal or femoral bruits appreciated. LUNGS: Equal expansion. No use of accessory muscles. No supraclavicular retractions. Decreased breath sounds, rhonchi with some rales, but no wheezes appreciated. ABDOMEN: Mildly globular, soft, positive for bowel sounds. No bruits either diastolic or systolic. RECTAL: Lax sphincter tone. GENITOURINARY: Normal appearing male genitalia. MUSCULOSKELETAL: No effusions present in his joints, but unable to assess his range of motion. EXTREMITIES: No evidence of edema, cyanosis or clubbing with palpable femoral, but unable to fully appreciate popliteal and dorsalis pedis pulses. NEUROLOGIC: The patient is alert, verbal, motor is 5/5. Cranial nerves 3-12 intact. Sensory intact. LABORATORY DATA: Revealed sodium of 130, potassium 3.5, chloride 94, bicarbonate 25, BUN 18, creatinine of 4.3, glucose 226, calcium 9.4. Hemoglobin A1c 6.2%. Troponin 0.07, BNP of 3190, albumin 3.3. White count of 11.3, hemoglobin 10.8, hematocrit 32, platelets 206, polys 79.4%. PT 11.8. INR 1.12, PTT 25.8. IMPRESSION: 1. End-stage renal disease, on hemodialysis. 2. Altered level of consciousness during dialysis, possibly due to episodes of hypotension and also the arrhythmia. 3. AFib. Chronic AFib with rapid ventricular response. 4. Respiratory failure, on T-piece. 5. Elevated troponin secondary to renal failure. 6. Elevated BNP secondary to renal failure. 7. Left-sided healthcare-acquired pneumonia. 8. Type 2 diabetes mellitus with CKD. 9. Essential hypertension with CKD. 10. Status post CVA with right hemiplegia. 11. COPD. 12. Hypothyroidism. 13. BPH. 14. GERD. 15. Anemia of chronic kidney disease. 16. Stage 3 sacral decubitus ulcer. 17. Stage 2 left trochanteric decubitus ulcer. 18. Status post respiratory failure on a T-piece. PLAN: 1. Hemodialysis in a.m. 2. Administer Cardizem IV. 3. Stat anticoagulation. 4. CT scan of the head. 5. Cardiology consult. Thank you, Dr. Laird for this consult. I will follow the patient closely with you. JOB# [id number]
[2017-03-02] MEDS: Atorvastatin Calcium 10 MG TAB PO SCH (20:44)
[2017-03-03] MEDS: methylPREDNISolone SS 40 mg Vial IVP SCH ×5 (00:01→23:47)
[2017-03-03] MEDS: Guaifenesin DM 10 ML UDC PO PRN (02:37)
[2017-03-03] MEDS: Diltiazem 30 mg Tab PO SCH ×3 (05:17→21:52)
[2017-03-03 05:30] LABS: HEMATOCRIT 33.4 % (41.0-60); HEMOGLOBIN 11.5 gm/dL (12-16); MEAN CELL VOLUME 90.1 fl (80-99); MEAN CORPUSCULAR HGB CONC 34.4 pg (28.0-36.0); MEAN PLATELET VOLUME 8.8 fl; NEUTROPHILE ABSOLUTE 5.8 Th/cmm (1.8-8.0); PLATELET COUNT 169 Th/cmm (150-400); RED CELL DISTRIBUTION WIDTH 17.8 % (11.5-20.0)
[2017-03-03 05:39] LABS: WHITE BLOOD COUNT 6.2 Th/cmm (4.8-10.8)
[2017-03-03 05:43] LABS: ALB/GLOB RATIO 0.7 (1.0-1.8); ALKALINE PHOSPHATASE 139 U/L (34-104); ANION GAP 13.3 (7.0-16.0); BILIRUBIN,TOTAL 0.5 mg/dL (0.3-1.0); BUN - UREA NITROGEN 72 mg/dL (7-25); BUN/CREATININE RATIO 20.6; CALCIUM SERUM 9.3 mg/dL (8.6-10.3); CARBON DIOXIDE 26.3 mEq/L (21.0-31.0); CHLORIDE 94 mEq/L (98-107); CREATININE - SERUM 3.5 mg/dL (0.7-1.3); GLUCOSE 438 mg/dL (70-105); POTASSIUM SERUM 3.6 mEq/L (3.5-5.1); SGOT 14 U/L (13-39); SGPT/ALT 17 U/L (7-52); SODIUM SERUM 130 mEq/L (136-145)
[2017-03-03] MEDS: Albuterol/Ipratropium Neb 3 ML AERS HHN SCH ×3 (06:25→19:15)
[2017-03-03] MEDS: INSULIN ASPART SLIDING SCALE 100 UNITS/ML UNIT SUBQ SCH ×4 (06:40→23:22)
--- NOTE | 2017-03-03 08:20 | Diagnostic Imaging Report ---
Exam: Chest x-ray portable HISTORY: Shortness of breath. Findings: the study compared to previous one of the the earlier. The study demonstrates left lower lobe pneumonia and effusion unchanged compatible prior examination. The congestion somewhat subsided. Again tracheostomy tube and right subclavian catheter unchanged appearance. The visualized bony thorax intact. IMPRESSION: Unchanged appearance of left lower lobe pneumonia and effusion. Follow-up examination recommended.
--- NOTE | 2017-03-03 08:38 | General Progress Note ---
Subjective - Review of Systems Service Date: 03/03/17 Subjective: I am better Objective - Results Result Diagrams: 03/03/17 04:40 03/03/17 04:40 Recent Labs: Laboratory Last Values WBC 6.2 Th/cmm (4.8-10.8) D 03/03/17 04:40 RBC 3.70 Mil/cmm (3.80-5.80) L 03/03/17 04:40 Hgb 11.5 gm/dL (12-16) L 03/03/17 04:40 Hct 33.4 % (41.0-60) L 03/03/17 04:40 MCV 90.1 fl (80-99) 03/03/17 04:40 MCH 31.0 pg (27.0-31.0) 03/03/17 04:40 MCHC Differential 34.4 pg (28.0-36.0) 03/03/17 04:40 RDW 17.8 % (11.5-20.0) 03/03/17 04:40 Plt Count 169 Th/cmm (150-400) 03/03/17 04:40 MPV 8.8 fl 03/03/17 04:40 Neutrophils % 79.4 % (40.0-80.0) 03/01/17 13:07 Band Neutrophils % 2 % (0-10) 03/02/17 04:30 Lymphocytes % 8.8 % (20.0-50.0) L 03/01/17 13:07 Monocytes % 6.7 % (2.0-10.0) 03/01/17 13:07 Eosinophils % 5.1 % (0.0-5.0) H 03/01/17 13:07 Basophils % 0.0 % (0.0-2.0) 03/01/17 13:07 Neutrophils (Manual) 88 % (40-80) H 03/02/17 04:30 Lymphocytes 5 % (20-50) L 03/02/17 04:30 Monocytes 5 % (2-10) 03/02/17 04:30 Platelet Estimate ADEQUATE (NORMAL) 03/02/17 04:30 PT 12.1 SECONDS (9.5-11.5) H 03/02/17 08:00 INR 1.15 (0.5-1.4) 03/02/17 08:00 PTT (Actin FS) 25.8 SECONDS (26.0-38.0) L 03/01/17 13:07 Sodium 130 mEq/L (136-145) L 03/03/17 04:40 Potassium 3.6 mEq/L (3.5-5.1) 03/03/17 04:40 Chloride 94 mEq/L (98-107) L 03/03/17 04:40 Carbon Dioxide 26.3 mEq/L (21.0-31.0) 03/03/17 04:40 Anion Gap 13.3 (7.0-16.0) 03/03/17 04:40 BUN 72 mg/dL (7-25) H 03/03/17 04:40 Creatinine 3.5 mg/dL (0.7-1.3) H 03/03/17 04:40 Est GFR ( Amer) TNP 03/03/17 04:40 Est GFR (Non-Af Amer) TNP 03/03/17 04:40 BUN/Creatinine Ratio 20.6 03/03/17 04:40 Glucose 438 mg/dL (70-105) H 03/03/17 04:40 Hemoglobin A1c % 6.2 % (4.0-6.0) H 03/01/17 13:50 Whole Bld Lactic Acid 1.00 mmol/L (0.60-1.99) 03/01/17 13:16 Calcium 9.3 mg/dL (8.6-10.3) 03/03/17 04:40 Phosphorus 2.9 mg/dL (2.5-5.0) 03/02/17 04:30 Magnesium 2.4 mg/dL (1.9-2.7) 03/02/17 04:30 Total Bilirubin 0.5 mg/dL (0.3-1.0) 03/03/17 04:40 AST 14 U/L (13-39) 03/03/17 04:40 ALT 17 U/L (7-52) 03/03/17 04:40 Alkaline Phosphatase 139 U/L (34-104) H 03/03/17 04:40 Creatine Kinase 74 U/L (30-223) 03/01/17 13:07 Troponin I 0.07 ng/mL (0.01-0.05) H* D 03/02/17 13:05 B-Natriuretic Peptide 3190.0 pg/mL (5.0-100.0) H 03/01/17 13:07 Total Protein 7.5 gm/dL (6.0-8.3) 03/03/17 04:40 Albumin 3.1 gm/dL (4.2-5.5) L 03/03/17 04:40 Globulin 4.4 gm/dL 03/03/17 04:40 Albumin/Globulin Ratio 0.7 (1.0-1.8) L 03/03/17 04:40 Triglycerides 58 mg/dL (<150) 03/01/17 13:07 Cholesterol 82 mg/dL (<200) 03/01/17 13:07 LDL Cholesterol Direct 39 mg/dL (75-193) L 03/01/17 13:07 HDL Cholesterol 35 mg/dL (23-92) 03/01/17 13:07 TSH 5.36 uIU/ml (0.34-5.60) 03/02/17 04:30 Urine Source MIDSTREAM 03/01/17 13:58 Urine Color YELLOW 03/01/17 13:58 Urine Clarity HAZY (CLEAR) 03/01/17 13:58 Urine pH 5.0 (4.6 - 8.0) 03/01/17 13:58 Ur Specific [place] 1.020 (1.005-1.030) 03/01/17 13:58 Urine Protein 30 mg/dL (NEGATIVE) H 03/01/17 13:58 Urine Glucose (UA) NEGATIVE mg/dL (NEGATIVE) 03/01/17 13:58 Urine Ketones TRACE mg/dL (NEGATIVE) 03/01/17 13:58 Urine Blood SMALL (NEGATIVE) H 03/01/17 13:58 Urine Nitrate NEGATIVE (NEGATIVE) 03/01/17 13:58 Urine Bilirubin SMALL (NEGATIVE) H 03/01/17 13:58 Urine Urobilinogen 0.2 E.U./dL (0.2 - 1.0) 03/01/17 13:58 Ur Leukocyte Esterase TRACE (NEGATIVE) H 03/01/17 13:58 Urine RBC 25-50 /hpf (0-5) H 03/01/17 13:58 Urine WBC 6-10 /hpf (0-5) H 03/01/17 13:58 Ur Epithelial Cells OCCASIONAL /lpf (FEW) 03/01/17 13:58 Amorphous Sediment FEW URATES (NONE SEEN) 03/01/17 13:58 Urine Bacteria 1+ /hpf (NONE SEEN) H 03/01/17 13:58 Urine Mucus FEW /lpf (FEW) 03/01/17 13:58 - Physical Exam Vitals and I&O: Vital Signs Temp 98.1 F 03/03/17 04:00 Pulse 93 03/03/17 06:26 Resp 25 03/03/17 06:26 BP 115/88 03/03/17 06:00 Pulse Ox 100 03/03/17 06:26 Intake & Output 03/02/17 03/03/17 03/03/17 18:59 06:59 18:59 Intake Total 890 810 Output Total 1600 51 Balance -710 759 Weight (lbs) 89.358 kg 92.108 kg Intake: Intake, IV Amount 50 cefTRIAXone 1 gm In 50 Sodium Chloride 0.9% 50 ml @ 100 mls/hr IV Q24HR [facility] Rx#:[id number] Oral 0 Tube Feeding 720 660 Other 120 150 Output: Urine 100 50 Stool 1 Hemodialysis 1500 Other: # Bowel Movements 1 Stool Characteristics Liquid Liquid Brown Brown Active Medications: Current Medications Acetaminophen (Tylenol 650mg/20.3ml Suspension) 650 mg PO Q4HR PRN PRN Reason: Pain or Fever >101 Stop: 04/30/17 19:39 Last Admin: 03/02/17 02:28 Dose: 650 mg Albuterol/Ipratropium (Duoneb Neb) 1.5 ml HHN Q6HR [facility] Stop: 04/30/17 18:59 Last Admin: 03/03/17 06:25 Dose: 1.5 ml Atorvastatin Calcium (Lipitor) 20 mg PO HS [facility] Stop: 04/30/17 20:59 Last Admin: 03/02/17 20:44 Dose: 20 mg Carvedilol (Coreg) 12.5 mg PO BID [facility] Stop: 04/30/17 19:44 Last Admin: 03/02/17 16:01 Dose: 12.5 mg Diltiazem HCl (Cardizem) 10 mg IVP Q4H PRN PRN Reason: HR ABOVE 130 Stop: 04/30/17 21:44 Diltiazem HCl (Cardizem) 30 mg PO Q8HR [facility] Stop: 05/01/17 04:59 Last Admin: 03/03/17 05:17 Dose: 30 mg Guaifenesin/Dextromethorphan (Robitussin Dm) 5 ml PO Q6HR PRN PRN Reason: Cough Stop: 04/30/17 23:29 Last Admin: 03/03/17 02:37 Dose: 5 ml Levofloxacin (Levaquin Pb) 500 mg in 100 mls @ 100 mls/hr IV Q48HR [facility] Stop: 05/02/17 08:59 Ceftriaxone Sodium 1 gm/ (Sodium Chloride) 50 mls @ 100 mls/hr IV Q24HR [facility] Stop: 05/01/17 12:44 Last Infusion: 03/02/17 16:30 Dose: Infused Insulin Aspart (Novolog Insulin Sliding Scale) 0 units SUBQ Q6HR [facility] PRN Reason: Protocol Stop: 05/02/17 06:44 Last Admin: 03/03/17 06:40 Dose: 12 units Levetiracetam (Keppra) 500 mg NG BID [facility] Stop: 05/01/17 16:59 Last Admin: 03/02/17 17:25 Dose: 500 mg Lorazepam (Ativan) 0.5 mg GT Q8H PRN; Protocol PRN Reason: Agitation Stop: 04/30/17 21:17 Last Admin: 03/02/17 08:46 Dose: 0.5 mg Lorazepam (Ativan) 1 mg IVP Q6HR PRN; Protocol PRN Reason: Anxiety Stop: 05/01/17 13:24 Last Admin: 03/03/17 02:37 Dose: 1 mg Methylprednisolone Sodium Succinate (Solu-Medrol) 40 mg IVP Q6HR [facility] Stop: 05/01/17 00:00 Last Admin: 03/03/17 05:38 Dose: 40 mg Miscellaneous (Clinical Monitoring) 1 ea [facility] DAILY PRN PRN Reason: RENAL Stop: 04/30/17 17:00 Mupirocin (Bactroban Oint) 1 appl NS BID [facility] Stop: 03/07/17 17:01 Ondansetron HCl (Zofran Odt) 4 mg PO Q6H PRN PRN Reason: Nausea / Vomiting Stop: 04/30/17 20:01 Pantoprazole Sodium (Protonix) 40 mg GT DAILY [facility] Stop: 05/01/17 08:59 Last Admin: 03/02/17 08:46 Dose: 40 mg Vitamin B Complex/Vit C/Folic Acid (Vitamin B Complex W/Vitamin C) 1 tab GT DAILY [facility] Stop: 05/01/17 08:59 Last Admin: 03/02/17 08:46 Dose: 1 tab Warfarin Sodium (Coumadin Per Pharmacy) 1 ea [facility] PRN PRN; Protocol PRN Reason: RX MONITORING Stop: 04/30/17 19:19 General: Alert, No acute distress HEENT: Atraumatic, PERRLA, EOMI Neck: Supple, +2 carotid pulse wo bruit Cardiovascular: Other (irregularly, irregular, tachy) Lungs: Other (rhonchi, congestion) Abdomen: Bowel sounds, Soft, Other (PEG in place.) Extremities: Edema, Other (No edema, he has sking tear in both foots. ) Neurological: Other (Non ambulatory) Skin: Rash, Other (Warm and dry ) Psych/Mental Status: Mental status NL Assessment/Plan - Assessment Assessment: Patient is awake, alert, calm. WBC normal, BNP is high. Patient is improving. Dx: Sepsis possible secondary to PNA, Afib, ALOC, Anemia, ESRD, DM, CHF, PVD, Hyponatremia. - Plan Plan: Patient is in ICU due to A-Fib, on IV NS, AB, PEG nutrition, on Carvedilol, Diltiazem, and SNF meds. He had HD yesterday. He is follow by Pulmonology, Nephro, Cardio. Will continue to monitor. Nutritional Asmnt/Malnutr-PDOC - Dietary Evaluation Malnutrition Findings (Please click <Entered> for more info): Nutritional Asmnt/Malnutrition Start: 03/02/17 12: 17 Text: Status: Complete Freq: Document 03/02/17 12:17 LCHENG (Rec: 03/02/17 12:[email or web address] Nutritional Asmnt/Malnutrition Patient General Information Nutritional Screening High Risk Consult Diagnosis PNA, ALOC, AMS, A fib, Sepsis, UTI, Anemia, dyhydration Pertinent Medical Hx/Surgical Hx HTN, DM, CHF, asthma/COPD, CVA /TIA, dyslipidemia, ESRD on dialysis, PEG Subjective Information Consult received for high blood glucose. Pt seen resting in bed, not able to communicate, on dialysis during the time of visit. Not able to perform physical exam at this time, pt appeared no fat/muscle wasting on shouder. Spoke with RN, pt is tolerating TF well, no residual noted. Current Diet Order/ Nutrition Support Novosource Renal at 60ml/hr x 20hr daily, providing 2400kcal and 109g pro Pertinent Medications Nacl IV, Vit B, Vit C, folic acid, warfarin Pertinent Labs 03/02 Na 129L, Cl 94L, BUN 84H , Cr 4.9H, Glu 247, A1c 6.2, Alb 3.1L Nutritional Hx/Data Height 1.75 m Height (Calculated Centimeters) 175.3 Current Weight (lbs) 87.747 kg Weight (Calculated Kilograms) 87.7 Weight (Calculated Grams) 40893.4 [place] Body Weight 160 % [place] Body Weight 120 Body Mass Index (BMI) 28.5 GI Symptoms GI Symptoms None Last BM 03/02 x 2 Skin Integrity/Comment: reddened area on left chest, left foot, pressure area on coccyx Estimated Nutritional Goals BEE in Kcals: Using Current wt Calories/Kcals/Kg 30-32 Kcals Calculated 9382-4392 Protein: Using Current wt Protein g/k-1.2 Protein Calculated 88-106 Fluid: ml 4005-6016 or per MD Nutritional Problem 1. Problem Problem altered nutrition related labs values Etiology hx of ESRD and DM Signs/Symptoms: BUN 84H, Cr 4.9H, Glu 247, A1c 6.2 Malnutrition Alert Protein-Calorie Malnutrition N/A Is there a minimum of two criteria No selected? Query Text:Check all the applicable criteria. A minimum of two criteria are recommended for diagnosis of either severe or non-severe malnutrition. Intervention/Recommendation Comments 1. continue with current TF regimen. It provides 1200ml total volume, 2400kcal, 109g protein, 860ml water, meeting 100% of nutritional needs. 2. Monitor TF rate, tolerance, labs, skin integrity and wt daily 3. adjust insulin as needed for optimal glycemic control 4. F/U as high risk in 2-3 days, 03/04-03/05 Expected Outcomes/Goals Expected Outcomes/Goals 1. pt to meet at least 75% of nutritional needs via nutrition support with tolerance 2. wt stability, skin to remain intact, labs to improve
[2017-03-03] MEDS: Vitamin B Complex w/Vitamin C Tab GT SCH (08:50)
[2017-03-03] MEDS: Levetiracetam 500 mg/5mL 5mL UDC NG SCH ×2 (08:50→16:53)
[2017-03-03] MEDS: Pantoprazole 40 mg/Packet GT SCH (08:50)
[2017-03-03] MEDS ORDERED: Levofloxacin 500mg/100mL 500 MG/100 ML BAG IV SCH (09:00)
[2017-03-03 09:08] LABS: INR 1.25 (0.5-1.4); PROTHROMBIN TIME (TEST) 13.1 SECONDS (9.5-11.5)
[2017-03-03] MEDS ORDERED: Heparin Sod 1,000 Units/mL 10ml HD ONE (09:40)
[2017-03-03 11:09] LABS: HEP B CORE IGM Negative (Negative)
[2017-03-03] MEDS: cefTRIAXone 1 GM in Sodium Chloride 0.9% 50 ML IV SCH (13:20)
--- NOTE | 2017-03-03 13:34 | General Progress Note ---
Subjective - Review of Systems Service Date: 03/03/17 Subjective: more awake, on T-piece, less congestion Objective - Results Result Diagrams: 03/03/17 04:40 03/03/17 04:40 Recent Labs: Laboratory Last Values WBC 6.2 Th/cmm (4.8-10.8) D 03/03/17 04:40 RBC 3.70 Mil/cmm (3.80-5.80) L 03/03/17 04:40 Hgb 11.5 gm/dL (12-16) L 03/03/17 04:40 Hct 33.4 % (41.0-60) L 03/03/17 04:40 MCV 90.1 fl (80-99) 03/03/17 04:40 MCH 31.0 pg (27.0-31.0) 03/03/17 04:40 MCHC Differential 34.4 pg (28.0-36.0) 03/03/17 04:40 RDW 17.8 % (11.5-20.0) 03/03/17 04:40 Plt Count 169 Th/cmm (150-400) 03/03/17 04:40 MPV 8.8 fl 03/03/17 04:40 Neutrophils % 79.4 % (40.0-80.0) 03/01/17 13:07 Band Neutrophils % 2 % (0-10) 03/02/17 04:30 Lymphocytes % 8.8 % (20.0-50.0) L 03/01/17 13:07 Monocytes % 6.7 % (2.0-10.0) 03/01/17 13:07 Eosinophils % 5.1 % (0.0-5.0) H 03/01/17 13:07 Basophils % 0.0 % (0.0-2.0) 03/01/17 13:07 Neutrophils (Manual) 88 % (40-80) H 03/02/17 04:30 Lymphocytes 5 % (20-50) L 03/02/17 04:30 Monocytes 5 % (2-10) 03/02/17 04:30 Platelet Estimate ADEQUATE (NORMAL) 03/02/17 04:30 PT 13.1 SECONDS (9.5-11.5) H 03/03/17 08:30 INR 1.25 (0.5-1.4) 03/03/17 08:30 PTT (Actin FS) 25.8 SECONDS (26.0-38.0) L 03/01/17 13:07 Sodium 130 mEq/L (136-145) L 03/03/17 04:40 Potassium 3.6 mEq/L (3.5-5.1) 03/03/17 04:40 Chloride 94 mEq/L (98-107) L 03/03/17 04:40 Carbon Dioxide 26.3 mEq/L (21.0-31.0) 03/03/17 04:40 Anion Gap 13.3 (7.0-16.0) 03/03/17 04:40 BUN 72 mg/dL (7-25) H 03/03/17 04:40 Creatinine 3.5 mg/dL (0.7-1.3) H 03/03/17 04:40 Est GFR ( Amer) TNP 03/03/17 04:40 Est GFR (Non-Af Amer) TNP 03/03/17 04:40 BUN/Creatinine Ratio 20.6 03/03/17 04:40 Glucose 438 mg/dL (70-105) H 03/03/17 04:40 POC Glucose 314 MG/DL (70 - 105) H 03/03/17 11:44 Hemoglobin A1c % 6.2 % (4.0-6.0) H 03/01/17 13:50 Whole Bld Lactic Acid 1.00 mmol/L (0.60-1.99) 03/01/17 13:16 Calcium 9.3 mg/dL (8.6-10.3) 03/03/17 04:40 Phosphorus 2.9 mg/dL (2.5-5.0) 03/02/17 04:30 Magnesium 2.4 mg/dL (1.9-2.7) 03/02/17 04:30 Total Bilirubin 0.5 mg/dL (0.3-1.0) 03/03/17 04:40 AST 14 U/L (13-39) 03/03/17 04:40 ALT 17 U/L (7-52) 03/03/17 04:40 Alkaline Phosphatase 139 U/L (34-104) H 03/03/17 04:40 Creatine Kinase 74 U/L (30-223) 03/01/17 13:07 Troponin I 0.07 ng/mL (0.01-0.05) H* D 03/02/17 13:05 B-Natriuretic Peptide 3190.0 pg/mL (5.0-100.0) H 03/01/17 13:07 Total Protein 7.5 gm/dL (6.0-8.3) 03/03/17 04:40 Albumin 3.1 gm/dL (4.2-5.5) L 03/03/17 04:40 Globulin 4.4 gm/dL 03/03/17 04:40 Albumin/Globulin Ratio 0.7 (1.0-1.8) L 03/03/17 04:40 Triglycerides 58 mg/dL (<150) 03/01/17 13:07 Cholesterol 82 mg/dL (<200) 03/01/17 13:07 LDL Cholesterol Direct 39 mg/dL (75-193) L 03/01/17 13:07 HDL Cholesterol 35 mg/dL (23-92) 03/01/17 13:07 TSH 5.36 uIU/ml (0.34-5.60) 03/02/17 04:30 Urine Source MIDSTREAM 03/01/17 13:58 Urine Color YELLOW 03/01/17 13:58 Urine Clarity HAZY (CLEAR) 03/01/17 13:58 Urine pH 5.0 (4.6 - 8.0) 03/01/17 13:58 Ur Specific [employer] 1.020 (1.005-1.030) 03/01/17 13:58 Urine Protein 30 mg/dL (NEGATIVE) H 03/01/17 13:58 Urine Glucose (UA) NEGATIVE mg/dL (NEGATIVE) 03/01/17 13:58 Urine Ketones TRACE mg/dL (NEGATIVE) 03/01/17 13:58 Urine Blood SMALL (NEGATIVE) H 03/01/17 13:58 Urine Nitrate NEGATIVE (NEGATIVE) 03/01/17 13:58 Urine Bilirubin SMALL (NEGATIVE) H 03/01/17 13:58 Urine Urobilinogen 0.2 E.U./dL (0.2 - 1.0) 03/01/17 13:58 Ur Leukocyte Esterase TRACE (NEGATIVE) H 03/01/17 13:58 Urine RBC 25-50 /hpf (0-5) H 03/01/17 13:58 Urine WBC 6-10 /hpf (0-5) H 03/01/17 13:58 Ur Epithelial Cells OCCASIONAL /lpf (FEW) 03/01/17 13:58 Amorphous Sediment FEW URATES (NONE SEEN) 03/01/17 13:58 Urine Bacteria 1+ /hpf (NONE SEEN) H 03/01/17 13:58 Urine Mucus FEW /lpf (FEW) 03/01/17 13:58 Hepatitis A IgM Ab Negative (Negative) 03/02/17 13:05 Hep Bs Antigen Negative (Negative) 03/02/17 13:05 Hep B Core IgM Ab Negative (Negative) 03/02/17 13:05 Hepatitis C Antibody 0.1 s/co ratio (0.0-0.9) 03/02/17 13:05 - Physical Exam Vitals and I&O: Vital Signs Temp 97.6 F 03/03/17 08:00 Pulse 87 03/03/17 13:21 Resp 27 03/03/17 11:42 BP 113/65 03/03/17 13:21 Pulse Ox 100 03/03/17 11:42 Intake & Output 03/02/17 03/03/17 03/03/17 18:59 06:59 18:59 Intake Total 890 810 Output Total 1600 51 0 Balance -710 759 0 Weight (lbs) 89.358 kg 92.108 kg 92.079 kg Intake: Intake, IV Amount 50 cefTRIAXone 1 gm In 50 Sodium Chloride 0.9% 50 ml @ 100 mls/hr IV Q24HR [facility] Rx#:[id number] Oral 0 Tube Feeding 720 660 Other 120 150 Output: Urine 100 50 Stool 1 0 Hemodialysis 1500 Other: # Bowel Movements 1 0 Stool Characteristics Liquid Liquid Mucoid Brown Brown Brown Active Medications: Current Medications Acetaminophen (Tylenol 650mg/20.3ml Suspension) 650 mg PO Q4HR PRN PRN Reason: Pain or Fever >101 Stop: 04/30/17 19:39 Last Admin: 03/03/17 11:39 Dose: 650 mg Albuterol/Ipratropium (Duoneb Neb) 1.5 ml HHN Q6HR [facility] Stop: 04/30/17 18:59 Last Admin: 03/03/17 11:41 Dose: 1.5 ml Atorvastatin Calcium (Lipitor) 20 mg PO HS [facility] Stop: 04/30/17 20:59 Last Admin: 03/02/17 20:44 Dose: 20 mg Carvedilol (Coreg) 12.5 mg PO BID [facility] Stop: 04/30/17 19:44 Last Admin: 03/03/17 08:50 Dose: 12.5 mg Diltiazem HCl (Cardizem) 10 mg IVP Q4H PRN PRN Reason: HR ABOVE 130 Stop: 04/30/17 21:44 Diltiazem HCl (Cardizem) 30 mg PO Q8HR [facility] Stop: 05/01/17 04:59 Last Admin: 03/03/17 13:21 Dose: 30 mg Guaifenesin/Dextromethorphan (Robitussin Dm) 5 ml PO Q6HR PRN PRN Reason: Cough Stop: 04/30/17 23:29 Last Admin: 03/03/17 02:37 Dose: 5 ml Levofloxacin (Levaquin Pb) 500 mg in 100 mls @ 100 mls/hr IV Q48HR [facility] Stop: 05/02/17 08:59 Last Admin: 03/03/17 12:10 Dose: 100 mls/hr Ceftriaxone Sodium 1 gm/ (Sodium Chloride) 50 mls @ 100 mls/hr IV Q24HR [facility] Stop: 05/01/17 12:44 Last Admin: 03/03/17 13:20 Dose: 100 mls/hr Insulin Aspart (Novolog Insulin Sliding Scale) 0 units SUBQ Q6HR [facility] PRN Reason: Protocol Stop: 05/02/17 06:44 Last Admin: 03/03/17 11:49 Dose: 8 units Levetiracetam (Keppra) 500 mg NG BID [facility] Stop: 05/01/17 16:59 Last Admin: 03/03/17 08:50 Dose: 500 mg Lorazepam (Ativan) 0.5 mg GT Q8H PRN; Protocol PRN Reason: Agitation Stop: 04/30/17 21:17 Last Admin: 03/02/17 08:46 Dose: 0.5 mg Lorazepam (Ativan) 1 mg IVP Q6HR PRN; Protocol PRN Reason: Anxiety Stop: 05/01/17 13:24 Last Admin: 03/03/17 02:37 Dose: 1 mg Methylprednisolone Sodium Succinate (Solu-Medrol) 40 mg IVP Q6HR [facility] Stop: 05/01/17 00:00 Last Admin: 03/03/17 12:10 Dose: 40 mg Miscellaneous (Clinical Monitoring) 1 ea DAILY PRN PRN Reason: RENAL Stop: 04/30/17 17:00 Mupirocin (Bactroban Oint) 1 appl NS BID [facility] Stop: 03/07/17 17:01 Last Admin: 03/03/17 08:55 Dose: 1 appl Ondansetron HCl (Zofran Odt) 4 mg PO Q6H PRN PRN Reason: Nausea / Vomiting Stop: 04/30/17 20:01 Pantoprazole Sodium (Protonix) 40 mg GT DAILY [facility] Stop: 05/01/17 08:59 Last Admin: 03/03/17 08:50 Dose: 40 mg Vitamin B Complex/Vit C/Folic Acid (Vitamin B Complex W/Vitamin C) 1 tab GT DAILY [facility] Stop: 05/01/17 08:59 Last Admin: 03/03/17 08:50 Dose: 1 tab Warfarin Sodium (Coumadin Per Pharmacy) 1 [facility] PRN PRN; Protocol PRN Reason: RX MONITORING Stop: 04/30/17 19:19 General: Alert, No acute distress HEENT: Atraumatic, PERRLA, EOMI Neck: Supple, +2 carotid pulse wo bruit Cardiovascular: Other (irregularly, irregular, tachy) Lungs: Other (rhonchi, congestion) Abdomen: Bowel sounds, Soft, Obese, Other (PEG in place.) Extremities: Edema, Other (No edema, he has sking tear in both foots. ) Neurological: Sensation intact, Other (Non ambulatory) Skin: Other (Warm and dry ), no Rash Psych/Mental Status: Mood NL Assessment/Plan - Assessment Assessment: ESRD on HD chronic A. Fib w/ RVR Left HAP/effusion ALOC during dialysis RF on T-piece Type 2 DM w/ CKD Ess Htn w/ CKD Anemia of ckd - Plan Plan: Lab - Result Diagrams 03/02/17 04:30 03/02/17 04:30 Current Medications Acetaminophen (Tylenol 650mg/20.3ml Suspension) 650 mg PO Q4HR PRN PRN Reason: Pain or Fever >101 Stop: 04/30/17 19:39 Last Admin: 03/02/17 02:28 Dose: 650 mg Albuterol/Ipratropium (Duoneb Neb) 1.5 ml HHN Q6HR [facility] Stop: 04/30/17 18:59 Atorvastatin Calcium (Lipitor) 20 mg PO HS [facility] Stop: 04/30/17 20:59 Last Admin: 03/01/17 20:59 Dose: 20 mg Carvedilol (Coreg) 12.5 mg PO BID [facility] Stop: 04/30/17 19:44 Last Admin: 03/02/17 10:33 Dose: Not Given Diltiazem HCl (Cardizem) 10 mg IVP Q4H PRN PRN Reason: HR ABOVE 130 Stop: 04/30/17 21:44 Diltiazem HCl (Cardizem) 30 mg PO Q8HR [facility] Stop: 05/01/17 04:59 Last Admin: 03/02/17 12:08 Dose: 30 mg Guaifenesin/Dextromethorphan (Robitussin Dm) 5 ml PO Q6HR PRN PRN Reason: Cough Stop: 04/30/17 23:29 Last Admin: 03/02/17 08:50 Dose: 5 ml Levofloxacin (Levaquin Pb) 500 mg in 100 mls @ 100 mls/hr IV Q48HR [facility] Stop: 05/02/17 08:59 Sodium Chloride (Nacl 0.9%) 1,000 mls @ 40 mls/hr IV .Q24H [facility] Stop: 04/30/17 16:34 Last Admin: 03/02/17 13:55 Dose: 40 mls/hr Albumin Human (Albuminar 25%) 25 gm in 100 mls @ 50 mls/hr IV PRN PRN PRN Reason: BP Support During HD Stop: 03/02/17 23:59 Ceftriaxone Sodium 1 gm/ (Sodium Chloride) 50 mls @ 100 mls/hr IV Q24HR [facility] Stop: 05/01/17 12:44 Levetiracetam (Keppra) 500 mg NG BID [facility] Stop: 05/01/17 16:59 Lorazepam (Ativan) 0.5 mg GT Q8H PRN; Protocol PRN Reason: Agitation Stop: 04/30/17 21:17 Last Admin: 03/02/17 08:46 Dose: 0.5 mg Lorazepam (Ativan) 1 mg IVP Q6HR PRN; Protocol PRN Reason: Anxiety Stop: 05/01/17 13:24 Last Admin: 03/02/17 13:42 Dose: 1 mg Methylprednisolone Sodium Succinate (Solu-Medrol) 40 mg IVP Q6HR [facility] Stop: 05/01/17 00:00 Last Admin: 03/02/17 11:13 Dose: 40 mg Miscellaneous (Clinical Monitoring) 1 ea MC DAILY PRN PRN Reason: RENAL Stop: 04/30/17 17:00 Ondansetron HCl (Zofran Odt) 4 mg PO Q6H PRN PRN Reason: Nausea / Vomiting Stop: 04/30/17 20:01 Pantoprazole Sodium (Protonix) 40 mg GT DAILY PRAVIN Stop: 05/01/17 08:59 Last Admin: 03/02/17 08:46 Dose: 40 mg Vitamin B Complex/Vit C/Folic Acid (Vitamin B Complex W/Vitamin C) 1 tab GT DAILY PRAVIN Stop: 05/01/17 08:59 Last Admin: 03/02/17 08:46 Dose: 1 tab Warfarin Sodium (Coumadin Per Pharmacy) 1 ea PRN PRN; Protocol PRN Reason: RX MONITORING Stop: 04/30/17 19:19 Lab - Result Diagrams 03/03/17 04:40 03/03/17 04:40 pt. was dialyzed today & tolerated it well reschedule for HD in am due to increasing CHF on CXR F/U electrolytes, cbc in am resp status much improved Nutritional Asmnt/Malnutr-PDOC - Dietary Evaluation Malnutrition Findings (Please click <Entered> for more info): Nutritional Asmnt/Malnutrition Start: 03/02/17 12: 17 Text: Status: Complete Freq: Document 03/02/17 12:17 HEN (Rec: 03/02/17 12:33 [email or web address] [email or web address]) Nutritional Asmnt/Malnutrition Patient General Information Nutritional Screening High Risk Consult Diagnosis PNA, ALOC, AMS, A fib, Sepsis, UTI, Anemia, dyhydration Pertinent Medical Hx/Surgical Hx HTN, DM, CHF, asthma/COPD, CVA /TIA, dyslipidemia, ESRD on dialysis, PEG Subjective Information Consult received for high blood glucose. Pt seen resting in bed, not able to communicate, on dialysis during the time of visit. Not able to perform physical exam at this time, pt appeared no fat/muscle wasting on shouder. Spoke with RN, pt is tolerating TF well, no residual noted. Current Diet Order/ Nutrition Support Novosource Renal at 60ml/hr x 20hr daily, providing 2400kcal and 109g pro Pertinent Medications Nacl IV, Vit B, Vit C, folic acid, warfarin Pertinent Labs 03/02 Na 129L, Cl 94L, BUN 84H , Cr 4.9H, Glu 247, A1c 6.2, Alb 3.1L Nutritional Hx/Data Height 1.75 m Height (Calculated Centimeters) 175.3 Current Weight (lbs) 87.747 kg Weight (Calculated Kilograms) 87.7 Weight (Calculated Grams) 51467.4 Maxwell Body Weight 160 % Maxwell Body Weight 120 Body Mass Index (BMI) 28.5 GI Symptoms GI Symptoms None Last BM 03/02 x 2 Skin Integrity/Comment: reddened area on left chest, left foot, pressure area on coccyx Estimated Nutritional Goals BEE in Kcals: Using Current wt Calories/Kcals/Kg 30-32 Kcals Calculated 0322-2642 Protein: Using Current wt Protein g/k-1.2 Protein Calculated 88-106 Fluid: ml 5748-2846 or per MD Nutritional Problem 1. Problem Problem altered nutrition related labs values Etiology hx of ESRD and DM Signs/Symptoms: BUN 84H, Cr 4.9H, Glu 247, A1c 6.2 Malnutrition Alert Protein-Calorie Malnutrition N/A Is there a minimum of two criteria No selected? Query Text:Check all the applicable criteria. A minimum of two criteria are recommended for diagnosis of either severe or non-severe malnutrition. Intervention/Recommendation Comments 1. continue with current TF regimen. It provides 1200ml total volume, 2400kcal, 109g protein, 860ml water, meeting 100% of nutritional needs. 2. Monitor TF rate, tolerance, labs, skin integrity and wt daily 3. adjust insulin as needed for optimal glycemic control 4. F/U as high risk in 2-3 days, 03/04-03/05 Expected Outcomes/Goals Expected Outcomes/Goals 1. pt to meet at least 75% of nutritional needs via nutrition support with tolerance 2. wt stability, skin to remain intact, labs to improve
[2017-03-03] MEDS ORDERED: Probiotic Screen MC PRN (14:58)
--- NOTE | 2017-03-03 16:38 | Cardiology ---
03/02/[address] Laird. PROCEDURE: Echocardiogram. M-MODE ECHOCARDIOGRAM: Mitral valve, anterior leaflet of mitral valve shows decreased excursion, EF velocity. Posterior leaflet of the mitral valve shows decreased excursion. Left ventricular posterior wall shows increased thickness, decreased excursion. Interventricular septum shows increased thickness, decreased excursion, ejection fraction 30%. Left atrium normal. Aortic root shows normal dimension, normal excursion of aortic leaflets. CONCLUSION: Cardiomyopathy, ejection fraction 30%. 2D ECHO: Long axis view shows enlarged left ventricular cavity with decreased ejection fraction. Mitral valve shows decreased excursion. Left atrium normal. Aortic root shows normal dimension, normal excursion of aortic leaflets. Short axis view of mitral valve normal. Short axis view of aortic valve normal. Apical four chamber view shows enlarged left ventricular cavity with decreased ejection fraction. Left atrium normal. Right ventricular cavity, right atrium normal. No pericardial effusion. CONCLUSION: Hypertrophy of the left ventricle, cardiomyopathy, ejection fraction 30%. Doppler study shows trace mitral regurgitation and tricuspid regurgitation. [facility]# [id number]
[2017-03-03] MEDS: Atorvastatin Calcium 10 MG TAB PO SCH (21:52)
[2017-03-04] MEDS: Albuterol/Ipratropium Neb 3 ML AERS HHN SCH ×4 (00:02→19:52)
[2017-03-04] MEDS: Diltiazem 30 mg Tab PO SCH ×3 (05:30→21:09)
[2017-03-04] MEDS: methylPREDNISolone SS 40 mg Vial IVP SCH ×3 (05:30→17:03)
[2017-03-04] MEDS: INSULIN ASPART SLIDING SCALE 100 UNITS/ML UNIT SUBQ SCH ×3 (05:44→17:08)
[2017-03-04 06:10] LABS: HEMATOCRIT 33.7 % (41.0-60); HEMOGLOBIN 11.4 gm/dL (12-16); MEAN CELL VOLUME 89.8 fl (80-99); MEAN CORPUSCULAR HEMOGLOBIN 30.5 pg (27.0-31.0); MEAN CORPUSCULAR HGB CONC 33.9 pg (28.0-36.0); MEAN PLATELET VOLUME 8.7 fl; NEUTROPHILE ABSOLUTE 8.2 Th/cmm (1.8-8.0); PLATELET COUNT 190 Th/cmm (150-400); RED BLOOD COUNT 3.75 Mil/cmm (3.80-5.80)
[2017-03-04 06:11] LABS: WHITE BLOOD COUNT 8.8 Th/cmm (4.8-10.8)
[2017-03-04 06:21] LABS: INR 1.57 (0.5-1.4); PROTHROMBIN TIME (TEST) 16.7 SECONDS (9.5-11.5)
[2017-03-04 06:28] LABS: ALB/GLOB RATIO 0.7 (1.0-1.8); ALKALINE PHOSPHATASE 144 U/L (34-104); ANION GAP 13.7 (7.0-16.0); BILIRUBIN,TOTAL 0.4 mg/dL (0.3-1.0); BUN - UREA NITROGEN 75 mg/dL (7-25); BUN/CREATININE RATIO 22.7; CALCIUM SERUM 8.9 mg/dL (8.6-10.3); CARBON DIOXIDE 26.7 mEq/L (21.0-31.0); CHLORIDE 95 mEq/L (98-107); CREATININE - SERUM 3.3 mg/dL (0.7-1.3); GLUCOSE 410 mg/dL (70-105); POTASSIUM SERUM 3.4 mEq/L (3.5-5.1); SGOT 16 U/L (13-39); SGPT/ALT 18 U/L (7-52); SODIUM SERUM 132 mEq/L (136-145)
--- NOTE | 2017-03-04 08:32 | Diagnostic Imaging Report ---
CHEST X-RAY: AP view INDICATION: Left pneumonia effusion COMPARISON: 03/03/2017 FINDINGS: Support devices are stable. Small left effusion and left lower lung zone infiltrates are again noted. Cardiomegaly is noted. IMPRESSION: No significant change in pulmonary status.
--- NOTE | 2017-03-04 08:45 | General Progress Note ---
Subjective - Review of Systems Service Date: 03/04/17 Subjective: I am better Objective - Results Result Diagrams: 03/04/17 05:54 03/04/17 05:54 Recent Labs: Laboratory Last Values WBC 8.8 Th/cmm (4.8-10.8) D 03/04/17 05:54 RBC 3.75 Mil/cmm (3.80-5.80) L 03/04/17 05:54 Hgb 11.4 gm/dL (12-16) L 03/04/17 05:54 Hct 33.7 % (41.0-60) L 03/04/17 05:54 MCV 89.8 fl (80-99) 03/04/17 05:54 MCH 30.5 pg (27.0-31.0) 03/04/17 05:54 MCHC Differential 33.9 pg (28.0-36.0) 03/04/17 05:54 RDW 17.0 % (11.5-20.0) 03/04/17 05:54 Plt Count 190 Th/cmm (150-400) 03/04/17 05:54 MPV 8.7 fl 03/04/17 05:54 Neutrophils % 79.4 % (40.0-80.0) 03/01/17 13:07 Band Neutrophils % 2 % (0-10) 03/02/17 04:30 Lymphocytes % 8.8 % (20.0-50.0) L 03/01/17 13:07 Monocytes % 6.7 % (2.0-10.0) 03/01/17 13:07 Eosinophils % 5.1 % (0.0-5.0) H 03/01/17 13:07 Basophils % 0.0 % (0.0-2.0) 03/01/17 13:07 Neutrophils (Manual) 88 % (40-80) H 03/02/17 04:30 Lymphocytes 5 % (20-50) L 03/02/17 04:30 Monocytes 5 % (2-10) 03/02/17 04:30 Platelet Estimate ADEQUATE (NORMAL) 03/02/17 04:30 PT 16.7 SECONDS (9.5-11.5) H 03/04/17 05:54 INR 1.57 (0.5-1.4) H 03/04/17 05:54 PTT (Actin FS) 25.8 SECONDS (26.0-38.0) L 03/01/17 13:07 Sodium 132 mEq/L (136-145) L 03/04/17 05:54 Potassium 3.4 mEq/L (3.5-5.1) L 03/04/17 05:54 Chloride 95 mEq/L (98-107) L 03/04/17 05:54 Carbon Dioxide 26.7 mEq/L (21.0-31.0) 03/04/17 05:54 Anion Gap 13.7 (7.0-16.0) 03/04/17 05:54 BUN 75 mg/dL (7-25) H 03/04/17 05:54 Creatinine 3.3 mg/dL (0.7-1.3) H 03/04/17 05:54 Est GFR ( Amer) TNP 03/04/17 05:54 Est GFR (Non-Af Amer) TNP 03/04/17 05:54 BUN/Creatinine Ratio 22.7 03/04/17 05:54 Glucose 410 mg/dL (70-105) H 03/04/17 05:54 POC Glucose 433 MG/DL (70 - 105) H 03/04/17 05:42 Hemoglobin A1c % 6.2 % (4.0-6.0) H 03/01/17 13:50 Whole Bld Lactic Acid 1.00 mmol/L (0.60-1.99) 03/01/17 13:16 Calcium 8.9 mg/dL (8.6-10.3) 03/04/17 05:54 Phosphorus 2.9 mg/dL (2.5-5.0) 03/02/17 04:30 Magnesium 2.4 mg/dL (1.9-2.7) 03/02/17 04:30 Total Bilirubin 0.4 mg/dL (0.3-1.0) 03/04/17 05:54 AST 16 U/L (13-39) 03/04/17 05:54 ALT 18 U/L (7-52) 03/04/17 05:54 Alkaline Phosphatase 144 U/L (34-104) H 03/04/17 05:54 Creatine Kinase 74 U/L (30-223) 03/01/17 13:07 Troponin I 0.07 ng/mL (0.01-0.05) H* D 03/02/17 13:05 B-Natriuretic Peptide 2040.0 pg/mL (5.0-100.0) H 03/04/17 05:54 Total Protein 7.0 gm/dL (6.0-8.3) 03/04/17 05:54 Albumin 2.8 gm/dL (4.2-5.5) L 03/04/17 05:54 Globulin 4.2 gm/dL 03/04/17 05:54 Albumin/Globulin Ratio 0.7 (1.0-1.8) L 03/04/17 05:54 Triglycerides 58 mg/dL (<150) 03/01/17 13:07 Cholesterol 82 mg/dL (<200) 03/01/17 13:07 LDL Cholesterol Direct 39 mg/dL (75-193) L 03/01/17 13:07 HDL Cholesterol 35 mg/dL (23-92) 03/01/17 13:07 TSH 5.36 uIU/ml (0.34-5.60) 03/02/17 04:30 Urine Source MIDSTREAM 03/01/17 13:58 Urine Color YELLOW 03/01/17 13:58 Urine Clarity HAZY (CLEAR) 03/01/17 13:58 Urine pH 5.0 (4.6 - 8.0) 03/01/17 13:58 Ur Specific [place] 1.020 (1.005-1.030) 03/01/17 13:58 Urine Protein 30 mg/dL (NEGATIVE) H 03/01/17 13:58 Urine Glucose (UA) NEGATIVE mg/dL (NEGATIVE) 03/01/17 13:58 Urine Ketones TRACE mg/dL (NEGATIVE) 03/01/17 13:58 Urine Blood SMALL (NEGATIVE) H 03/01/17 13:58 Urine Nitrate NEGATIVE (NEGATIVE) 03/01/17 13:58 Urine Bilirubin SMALL (NEGATIVE) H 03/01/17 13:58 Urine Urobilinogen 0.2 E.U./dL (0.2 - 1.0) 03/01/17 13:58 Ur Leukocyte Esterase TRACE (NEGATIVE) H 03/01/17 13:58 Urine RBC 25-50 /hpf (0-5) H 03/01/17 13:58 Urine WBC 6-10 /hpf (0-5) H 03/01/17 13:58 Ur Epithelial Cells OCCASIONAL /lpf (FEW) 03/01/17 13:58 Amorphous Sediment FEW URATES (NONE SEEN) 03/01/17 13:58 Urine Bacteria 1+ /hpf (NONE SEEN) H 03/01/17 13:58 Urine Mucus FEW /lpf (FEW) 03/01/17 13:58 Hepatitis A IgM Ab Negative (Negative) 03/02/17 13:05 Hep Bs Antigen Negative (Negative) 03/02/17 13:05 Hep B Core IgM Ab Negative (Negative) 03/02/17 13:05 Hepatitis C Antibody 0.1 s/co ratio (0.0-0.9) 03/02/17 13:05 - Physical Exam Vitals and I&O: Vital Signs Temp 97.6 F 03/04/17 08:00 Pulse 64 03/04/17 08:00 Resp 20 03/04/17 08:24 BP 124/74 03/04/17 08:00 Pulse Ox 98 03/04/17 08:00 Intake & Output 03/03/17 03/04/17 03/04/17 18:59 06:59 18:59 Intake Total 1020 0 480 Output Total 3100 150 51 Balance -2080 -150 429 Weight (lbs) 104.326 kg 92.278 kg 92.278 kg Intake: Intake, IV Amount 150 Levofloxacin 500mg/100mL 100 500 mg In 100 ml @ 100 mls/hr IV Q48HR [facility] Rx#: [id number] cefTRIAXone 1 gm In 50 Sodium Chloride 0.9% 50 ml @ 100 mls/hr IV Q24HR [facility] Rx#:[id number] Oral 0 0 Tube Feeding 720 480 Other 150 Output: Urine 100 150 50 Stool 0 1 Other 3000 Other: # Bowel Movements 0 0 Stool Characteristics Mucoid Brown Active Medications: Current Medications Acetaminophen (Tylenol 650mg/20.3ml Suspension) 650 mg PO Q4HR PRN PRN Reason: Pain or Fever >101 Stop: 04/30/17 19:39 Last Admin: 03/03/17 15:37 Dose: 650 mg Albuterol/Ipratropium (Duoneb Neb) 1.5 ml HHN Q6HR [facility] Stop: 04/30/17 18:59 Last Admin: 03/04/17 07:51 Dose: 1.5 ml Atorvastatin Calcium (Lipitor) 20 mg PO HS [facility] Stop: 04/30/17 20:59 Last Admin: 03/03/17 21:52 Dose: 20 mg Carvedilol (Coreg) 12.5 mg PO BID [facility] Stop: 04/30/17 19:44 Last Admin: 03/03/17 16:53 Dose: 12.5 mg Diltiazem HCl (Cardizem) 10 mg IVP Q4H PRN PRN Reason: HR ABOVE 130 Stop: 04/30/17 21:44 Diltiazem HCl (Cardizem) 30 mg PO Q8HR [facility] Stop: 05/01/17 04:59 Last Admin: 03/04/17 05:30 Dose: 30 mg Guaifenesin/Dextromethorphan (Robitussin Dm) 5 ml PO Q6HR PRN PRN Reason: Cough Stop: 04/30/17 23:29 Last Admin: 03/03/17 02:37 Dose: 5 ml Levofloxacin (Levaquin Pb) 500 mg in 100 mls @ 100 mls/hr IV Q48HR [facility] Stop: 05/02/17 08:59 Last Infusion: 03/03/17 13:10 Dose: Infused Ceftriaxone Sodium 1 gm/ (Sodium Chloride) 50 mls @ 100 mls/hr IV Q24HR [facility] Stop: 05/01/17 12:44 Last Infusion: 03/03/17 13:50 Dose: Infused Insulin Aspart (Novolog Insulin Sliding Scale) 0 units SUBQ Q6HR [facility] PRN Reason: Protocol Stop: 05/02/17 06:44 Last Admin: 03/04/17 05:44 Dose: 12 units Levetiracetam (Keppra) 500 mg NG BID [facility] Stop: 05/01/17 16:59 Last Admin: 03/03/17 16:53 Dose: 500 mg Lorazepam (Ativan) 0.5 mg GT Q8H PRN; Protocol PRN Reason: Agitation Stop: 04/30/17 21:17 Last Admin: 03/03/17 15:37 Dose: 0.5 mg Lorazepam (Ativan) 1 mg IVP Q6HR PRN; Protocol PRN Reason: Anxiety Stop: 05/01/17 13:24 Last Admin: 03/03/17 23:23 Dose: 1 mg Methylprednisolone Sodium Succinate (Solu-Medrol) 40 mg IVP Q6HR [facility] Stop: 05/01/17 00:00 Last Admin: 03/04/17 05:30 Dose: 40 mg Miscellaneous (Clinical Monitoring) 1 ea MC DAILY PRN PRN Reason: RENAL Stop: 04/30/17 17:00 Miscellaneous (Probiotic Screen) 1 ea MC PRN PRN PRN Reason: PROTOCOL Stop: 05/02/17 14:57 Mupirocin (Bactroban Oint) 1 appl NS BID [facility] Stop: 03/07/17 17:01 Last Admin: 03/03/17 16:53 Dose: 1 appl Ondansetron HCl (Zofran Odt) 4 mg PO Q6H PRN PRN Reason: Nausea / Vomiting Stop: 04/30/17 20:01 Pantoprazole Sodium (Protonix) 40 mg GT DAILY [facility] Stop: 05/01/17 08:59 Last Admin: 03/03/17 08:50 Dose: 40 mg Vitamin B Complex/Vit C/Folic Acid (Vitamin B Complex W/Vitamin C) 1 tab GT DAILY [facility] Stop: 05/01/17 08:59 Last Admin: 03/03/17 08:50 Dose: 1 tab Warfarin Sodium (Coumadin Per Pharmacy) 1 ea PRN PRN; Protocol PRN Reason: RX MONITORING Stop: 04/30/17 19:19 General: Alert, No acute distress HEENT: Atraumatic, PERRLA, EOMI Neck: Supple, +2 carotid pulse wo bruit Cardiovascular: Other (irregularly, irregular, tachy) Lungs: Other (rhonchi, congestion) Abdomen: Bowel sounds, Soft, Obese, Other (PEG in place.) Extremities: Edema, Other (No edema, he has sking tear in both foots. ) Neurological: Sensation intact, Other (Non ambulatory) Skin: Other (Warm and dry ), no Rash Psych/Mental Status: Mood NL Assessment/Plan - Assessment Assessment: Patient is awake, alert, calm. WBC normal, BNP is improving, CXR continue showing infiltrate. Patient is improving. Dx: Sepsis possible secondary to PNA , Afib, ALOC, Anemia, ESRD on HD, DM, CHF, PVD, Hyponatremia. - Plan Plan: Patient is in telemetry, due to A-Fib, on IV NS, AB, PEG nutrition, on Carvedilol, Diltiazem, and SNF meds. He is follow by Pulmonology, Nephro, Cardio. Will continue to monitor. Nutritional Asmnt/Malnutr-PDOC - Dietary Evaluation Malnutrition Findings (Please click <Entered> for more info): Nutritional Asmnt/Malnutrition Start: 03/02/17 12: 17 Text: Status: Complete Freq: Document 03/02/17 12:17 ARMANDO (Rec: 03/02/17 12:33 [facility] Nutritional Asmnt/Malnutrition Patient General Information Nutritional Screening High Risk Consult Diagnosis PNA, ALOC, AMS, A fib, Sepsis, UTI, Anemia, dyhydration Pertinent Medical Hx/Surgical Hx HTN, DM, CHF, asthma/COPD, CVA /TIA, dyslipidemia, ESRD on dialysis, PEG Subjective Information Consult received for high blood glucose. Pt seen resting in bed, not able to communicate, on dialysis during the time of visit. Not able to perform physical exam at this time, pt appeared no fat/muscle wasting on shouder. Spoke with RN, pt is tolerating TF well, no residual noted. Current Diet Order/ Nutrition Support Novosource Renal at 60ml/hr x 20hr daily, providing 2400kcal and 109g pro Pertinent Medications Nacl IV, Vit B, Vit C, folic acid, warfarin Pertinent Labs 03/02 Na 129L, Cl 94L, BUN 84H , Cr 4.9H, Glu 247, A1c 6.2, Alb 3.1L Nutritional Hx/Data Height 1.75 m Height (Calculated Centimeters) 175.3 Current Weight (lbs) 87.747 kg Weight (Calculated Kilograms) 87.7 Weight (Calculated Grams) 40327.4 Hood Body Weight 160 % Hood Body Weight 120 Body Mass Index (BMI) 28.5 GI Symptoms GI Symptoms None Last BM 03/02 x 2 Skin Integrity/Comment: reddened area on left chest, left foot, pressure area on coccyx Estimated Nutritional Goals BEE in Kcals: Using Current wt Calories/Kcals/Kg 30-32 Kcals Calculated 3758-1206 Protein: Using Current wt Protein g/k-1.2 Protein Calculated 88-106 Fluid: ml [id number] or per MD Nutritional Problem 1. Problem Problem altered nutrition related labs values Etiology hx of ESRD and DM Signs/Symptoms: BUN 84H, Cr 4.9H, Glu 247, A1c 6.2 Malnutrition Alert Protein-Calorie Malnutrition N/A Is there a minimum of two criteria No selected? Query Text:Check all the applicable criteria. A minimum of two criteria are recommended for diagnosis of either severe or non-severe malnutrition. Intervention/Recommendation Comments 1. continue with current TF regimen. It provides 1200ml total volume, 2400kcal, 109g protein, 860ml water, meeting 100% of nutritional needs. 2. Monitor TF rate, tolerance, labs, skin integrity and wt daily 3. adjust insulin as needed for optimal glycemic control 4. F/U as high risk in 2-3 days, 03/04-03/05 Expected Outcomes/Goals Expected Outcomes/Goals 1. pt to meet at least 75% of nutritional needs via nutrition support with tolerance 2. wt stability, skin to remain intact, labs to improve
[2017-03-04] MEDS: Levetiracetam 500 mg/5mL 5mL UDC NG SCH ×2 (09:33→16:41)
[2017-03-04] MEDS: Vitamin B Complex w/Vitamin C Tab GT SCH (09:34)
[2017-03-04] MEDS: Pantoprazole 40 mg/Packet GT SCH (09:35)
[2017-03-04] MEDS: cefTRIAXone 1 GM in Sodium Chloride 0.9% 50 ML IV SCH (12:48)
[2017-03-04] MEDS ORDERED: Insulin Detemir 100 units/mL 10mL Vial SUBQ SCH (13:00)
--- NOTE | 2017-03-04 14:49 | General Progress Note ---
Subjective - Review of Systems Service Date: 03/04/17 Subjective: sleeping, on T-piece, less congestion Objective - Results Result Diagrams: 03/04/17 05:54 03/04/17 05:54 Recent Labs: Laboratory Last Values WBC 8.8 Th/cmm (4.8-10.8) D 03/04/17 05:54 RBC 3.75 Mil/cmm (3.80-5.80) L 03/04/17 05:54 Hgb 11.4 gm/dL (12-16) L 03/04/17 05:54 Hct 33.7 % (41.0-60) L 03/04/17 05:54 MCV 89.8 fl (80-99) 03/04/17 05:54 MCH 30.5 pg (27.0-31.0) 03/04/17 05:54 MCHC Differential 33.9 pg (28.0-36.0) 03/04/17 05:54 RDW 17.0 % (11.5-20.0) 03/04/17 05:54 Plt Count 190 Th/cmm (150-400) 03/04/17 05:54 MPV 8.7 fl 03/04/17 05:54 Neutrophils % 79.4 % (40.0-80.0) 03/01/17 13:07 Band Neutrophils % 2 % (0-10) 03/02/17 04:30 Lymphocytes % 8.8 % (20.0-50.0) L 03/01/17 13:07 Monocytes % 6.7 % (2.0-10.0) 03/01/17 13:07 Eosinophils % 5.1 % (0.0-5.0) H 03/01/17 13:07 Basophils % 0.0 % (0.0-2.0) 03/01/17 13:07 Neutrophils (Manual) 88 % (40-80) H 03/02/17 04:30 Lymphocytes 5 % (20-50) L 03/02/17 04:30 Monocytes 5 % (2-10) 03/02/17 04:30 Platelet Estimate ADEQUATE (NORMAL) 03/02/17 04:30 PT 16.7 SECONDS (9.5-11.5) H 03/04/17 05:54 INR 1.57 (0.5-1.4) H 03/04/17 05:54 PTT (Actin FS) 25.8 SECONDS (26.0-38.0) L 03/01/17 13:07 Sodium 132 mEq/L (136-145) L 03/04/17 05:54 Potassium 3.4 mEq/L (3.5-5.1) L 03/04/17 05:54 Chloride 95 mEq/L (98-107) L 03/04/17 05:54 Carbon Dioxide 26.7 mEq/L (21.0-31.0) 03/04/17 05:54 Anion Gap 13.7 (7.0-16.0) 03/04/17 05:54 BUN 75 mg/dL (7-25) H 03/04/17 05:54 Creatinine 3.3 mg/dL (0.7-1.3) H 03/04/17 05:54 Est GFR ( Amer) TNP 03/04/17 05:54 Est GFR (Non-Af Amer) TNP 03/04/17 05:54 BUN/Creatinine Ratio 22.7 03/04/17 05:54 Glucose 410 mg/dL (70-105) H 03/04/17 05:54 POC Glucose 385 MG/DL (70 - 105) H 03/04/17 12:46 Hemoglobin A1c % 6.2 % (4.0-6.0) H 03/01/17 13:50 Whole Bld Lactic Acid 1.00 mmol/L (0.60-1.99) 03/01/17 13:16 Calcium 8.9 mg/dL (8.6-10.3) 03/04/17 05:54 Phosphorus 2.9 mg/dL (2.5-5.0) 03/02/17 04:30 Magnesium 2.4 mg/dL (1.9-2.7) 03/02/17 04:30 Total Bilirubin 0.4 mg/dL (0.3-1.0) 03/04/17 05:54 AST 16 U/L (13-39) 03/04/17 05:54 ALT 18 U/L (7-52) 03/04/17 05:54 Alkaline Phosphatase 144 U/L (34-104) H 03/04/17 05:54 Creatine Kinase 74 U/L (30-223) 03/01/17 13:07 Troponin I 0.07 ng/mL (0.01-0.05) H* D 03/02/17 13:05 B-Natriuretic Peptide 2040.0 pg/mL (5.0-100.0) H 03/04/17 05:54 Total Protein 7.0 gm/dL (6.0-8.3) 03/04/17 05:54 Albumin 2.8 gm/dL (4.2-5.5) L 03/04/17 05:54 Globulin 4.2 gm/dL 03/04/17 05:54 Albumin/Globulin Ratio 0.7 (1.0-1.8) L 03/04/17 05:54 Triglycerides 58 mg/dL (<150) 03/01/17 13:07 Cholesterol 82 mg/dL (<200) 03/01/17 13:07 LDL Cholesterol Direct 39 mg/dL (75-193) L 03/01/17 13:07 HDL Cholesterol 35 mg/dL (23-92) 03/01/17 13:07 TSH 5.36 uIU/ml (0.34-5.60) 03/02/17 04:30 Urine Source MIDSTREAM 03/01/17 13:58 Urine Color YELLOW 03/01/17 13:58 Urine Clarity HAZY (CLEAR) 03/01/17 13:58 Urine pH 5.0 (4.6 - 8.0) 03/01/17 13:58 Ur Specific [place] 1.020 (1.005-1.030) 03/01/17 13:58 Urine Protein 30 mg/dL (NEGATIVE) H 03/01/17 13:58 Urine Glucose (UA) NEGATIVE mg/dL (NEGATIVE) 03/01/17 13:58 Urine Ketones TRACE mg/dL (NEGATIVE) 03/01/17 13:58 Urine Blood SMALL (NEGATIVE) H 03/01/17 13:58 Urine Nitrate NEGATIVE (NEGATIVE) 03/01/17 13:58 Urine Bilirubin SMALL (NEGATIVE) H 03/01/17 13:58 Urine Urobilinogen 0.2 E.U./dL (0.2 - 1.0) 03/01/17 13:58 Ur Leukocyte Esterase TRACE (NEGATIVE) H 03/01/17 13:58 Urine RBC 25-50 /hpf (0-5) H 03/01/17 13:58 Urine WBC 6-10 /hpf (0-5) H 03/01/17 13:58 Ur Epithelial Cells OCCASIONAL /lpf (FEW) 03/01/17 13:58 Amorphous Sediment FEW URATES (NONE SEEN) 03/01/17 13:58 Urine Bacteria 1+ /hpf (NONE SEEN) H 03/01/17 13:58 Urine Mucus FEW /lpf (FEW) 03/01/17 13:58 Hepatitis A IgM Ab Negative (Negative) 03/02/17 13:05 Hep Bs Antigen Negative (Negative) 03/02/17 13:05 Hep B Core IgM Ab Negative (Negative) 03/02/17 13:05 Hepatitis C Antibody 0.1 s/co ratio (0.0-0.9) 03/02/17 13:05 - Physical Exam Vitals and I&O: Vital Signs Temp 97.6 F 03/04/17 08:00 Pulse 61 03/04/17 12:47 Resp 20 03/04/17 12:00 BP 117/76 03/04/17 10:34 Pulse Ox 100 03/04/17 12:00 Intake & Output 03/03/17 03/04/17 03/04/17 18:59 06:59 18:59 Intake Total 1020 0 480 Output Total 3100 150 51 Balance -2080 -150 429 Weight (lbs) 104.326 kg 92.278 kg 92.278 kg Intake: Intake, IV Amount 150 Levofloxacin 500mg/100mL 100 500 mg In 100 ml @ 100 mls/hr IV Q48HR [facility] Rx#: [id number] cefTRIAXone 1 gm In 50 Sodium Chloride 0.9% 50 ml @ 100 mls/hr IV Q24HR [facility] Rx#:[id number] Oral 0 0 Tube Feeding 720 480 Other 150 Output: Urine 100 150 50 Stool 0 1 Other 3000 Other: # Bowel Movements 0 0 Stool Characteristics Mucoid Brown Active Medications: Current Medications Acetaminophen (Tylenol 650mg/20.3ml Suspension) 650 mg PO Q4HR PRN PRN Reason: Pain or Fever >101 Stop: 04/30/17 19:39 Last Admin: 03/03/17 15:37 Dose: 650 mg Albuterol/Ipratropium (Duoneb Neb) 1.5 ml HHN Q6HR [facility] Stop: 04/30/17 18:59 Last Admin: 03/04/17 11:35 Dose: 1.5 ml Atorvastatin Calcium (Lipitor) 20 mg PO HS [facility] Stop: 04/30/17 20:59 Last Admin: 03/03/17 21:52 Dose: 20 mg Carvedilol (Coreg) 12.5 mg PO BID [facility] Stop: 04/30/17 19:44 Last Admin: 03/04/17 09:34 Dose: Not Given Diltiazem HCl (Cardizem) 10 mg IVP Q4H PRN PRN Reason: HR ABOVE 130 Stop: 04/30/17 21:44 Diltiazem HCl (Cardizem) 30 mg PO Q8HR [facility] Stop: 05/01/17 04:59 Last Admin: 03/04/17 12:47 Dose: 30 mg Guaifenesin/Dextromethorphan (Robitussin Dm) 5 ml PO Q6HR PRN PRN Reason: Cough Stop: 04/30/17 23:29 Last Admin: 03/03/17 02:37 Dose: 5 ml Levofloxacin (Levaquin Pb) 500 mg in 100 mls @ 100 mls/hr IV Q48HR [facility] Stop: 05/02/17 08:59 Last Infusion: 03/03/17 13:10 Dose: Infused Ceftriaxone Sodium 1 gm/ (Sodium Chloride) 50 mls @ 100 mls/hr IV Q24HR [facility] Stop: 05/01/17 12:44 Last Admin: 03/04/17 12:48 Dose: 100 mls/hr Insulin Aspart (Novolog Insulin Sliding Scale) 0 units SUBQ Q6HR [facility] PRN Reason: Protocol Stop: 05/02/17 06:44 Last Admin: 03/04/17 13:08 Dose: 10 units Insulin Detemir (Levemir Insulin) 20 units SUBQ DAILY [facility] PRN Reason: Protocol Stop: 05/03/17 12:59 Last Admin: 03/04/17 13:15 Dose: 20 units Levetiracetam (Keppra) 500 mg NG BID [facility] Stop: 05/01/17 16:59 Last Admin: 03/04/17 09:33 Dose: 500 mg Lorazepam (Ativan) 0.5 mg GT Q8H PRN; Protocol PRN Reason: Agitation Stop: 04/30/17 21:17 Last Admin: 03/03/17 15:37 Dose: 0.5 mg Lorazepam (Ativan) 1 mg IVP Q6HR PRN; Protocol PRN Reason: Anxiety Stop: 05/01/17 13:24 Last Admin: 03/03/17 23:23 Dose: 1 mg Methylprednisolone Sodium Succinate (Solu-Medrol) 40 mg IVP Q6HR [facility] Stop: 05/01/17 00:00 Last Admin: 03/04/17 12:47 Dose: 40 mg Miscellaneous (Clinical Monitoring) 1 [facility] DAILY PRN PRN Reason: RENAL Stop: 04/30/17 17:00 Miscellaneous (Probiotic Screen) 1 [facility] PRN PRN PRN Reason: PROTOCOL Stop: 05/02/17 14:57 Mupirocin (Bactroban Oint) 1 appl NS BID [facility] Stop: 03/07/17 17:01 Last Admin: 03/04/17 09:33 Dose: 1 appl Ondansetron HCl (Zofran Odt) 4 mg PO Q6H PRN PRN Reason: Nausea / Vomiting Stop: 04/30/17 20:01 Pantoprazole Sodium (Protonix) 40 mg GT DAILY [facility] Stop: 05/01/17 08:59 Last Admin: 03/04/17 09:35 Dose: 40 mg Vitamin B Complex/Vit C/Folic Acid (Vitamin B Complex W/Vitamin C) 1 tab GT DAILY [facility] Stop: 05/01/17 08:59 Last Admin: 03/04/17 09:34 Dose: 1 tab Warfarin Sodium (Coumadin Per Pharmacy) 1 [facility] PRN PRN; Protocol PRN Reason: RX MONITORING Stop: 04/30/17 19:19 General: No acute distress HEENT: Atraumatic, PERRLA, EOMI Neck: Supple, +2 carotid pulse wo bruit Cardiovascular: Other (irregularly, irregular) Lungs: Other (rhonchi, congestion) Abdomen: Bowel sounds, Soft, Obese, Other (PEG in place.) Extremities: Edema, Other (No edema, he has sking tear in both foots. ) Neurological: Sensation intact, Other (Non ambulatory) Skin: Other (Warm and dry ), no Rash Psych/Mental Status: Mood NL Assessment/Plan - Assessment Assessment: ESRD on HD chronic A. Fib w/ RVR Left HAP/effusion ALOC during dialysis RF on T-piece Type 2 DM w/ CKD Ess Htn w/ CKD Anemia of ckd - Plan Plan: Lab - Result Diagrams 03/02/17 04:30 03/02/17 04:30 Current Medications Acetaminophen (Tylenol 650mg/20.3ml Suspension) 650 mg PO Q4HR PRN PRN Reason: Pain or Fever >101 Stop: 04/30/17 19:39 Last Admin: 03/02/17 02:28 Dose: 650 mg Albuterol/Ipratropium (Duoneb Neb) 1.5 ml HHN Q6HR [facility] Stop: 04/30/17 18:59 Atorvastatin Calcium (Lipitor) 20 mg PO HS [facility] Stop: 04/30/17 20:59 Last Admin: 03/01/17 20:59 Dose: 20 mg Carvedilol (Coreg) 12.5 mg PO BID [facility] Stop: 04/30/17 19:44 Last Admin: 03/02/17 10:33 Dose: Not Given Diltiazem HCl (Cardizem) 10 mg IVP Q4H PRN PRN Reason: HR ABOVE 130 Stop: 04/30/17 21:44 Diltiazem HCl (Cardizem) 30 mg PO Q8HR [facility] Stop: 05/01/17 04:59 Last Admin: 03/02/17 12:08 Dose: 30 mg Guaifenesin/Dextromethorphan (Robitussin Dm) 5 ml PO Q6HR PRN PRN Reason: Cough Stop: 04/30/17 23:29 Last Admin: 03/02/17 08:50 Dose: 5 ml Levofloxacin (Levaquin Pb) 500 mg in 100 mls @ 100 mls/hr IV Q48HR [facility] Stop: 05/02/17 08:59 Sodium Chloride (Nacl 0.9%) 1,000 mls @ 40 mls/hr IV .Q24H [facility] Stop: 04/30/17 16:34 Last Admin: 03/02/17 13:55 Dose: 40 mls/hr Albumin Human (Albuminar 25%) 25 gm in 100 mls @ 50 mls/hr IV PRN PRN PRN Reason: BP Support During HD Stop: 03/02/17 23:59 Ceftriaxone Sodium 1 gm/ (Sodium Chloride) 50 mls @ 100 mls/hr IV Q24HR [facility] Stop: 05/01/17 12:44 Levetiracetam (Keppra) 500 mg NG BID [facility] Stop: 05/01/17 16:59 Lorazepam (Ativan) 0.5 mg GT Q8H PRN; Protocol PRN Reason: Agitation Stop: 04/30/17 21:17 Last Admin: 03/02/17 08:46 Dose: 0.5 mg Lorazepam (Ativan) 1 mg IVP Q6HR PRN; Protocol PRN Reason: Anxiety Stop: 05/01/17 13:24 Last Admin: 03/02/17 13:42 Dose: 1 mg Methylprednisolone Sodium Succinate (Solu-Medrol) 40 mg IVP Q6HR [facility] Stop: 05/01/17 00:00 Last Admin: 03/02/17 11:13 Dose: 40 mg Miscellaneous (Clinical Monitoring) 1 [facility] DAILY PRN PRN Reason: RENAL Stop: 04/30/17 17:00 Ondansetron HCl (Zofran Odt) 4 mg PO Q6H PRN PRN Reason: Nausea / Vomiting Stop: 04/30/17 20:01 Pantoprazole Sodium (Protonix) 40 mg GT DAILY [facility] Stop: 05/01/17 08:59 Last Admin: 03/02/17 08:46 Dose: 40 mg Vitamin B Complex/Vit C/Folic Acid (Vitamin B Complex W/Vitamin C) 1 tab GT DAILY [facility] Stop: 05/01/17 08:59 Last Admin: 03/02/17 08:46 Dose: 1 tab Warfarin Sodium (Coumadin Per Pharmacy) 1 [facility] PRN PRN; Protocol PRN Reason: RX MONITORING Stop: 04/30/17 19:19 Lab - Result Diagrams 03/04/17 05:54 03/04/17 05:54 pt. for diaslysis in am F/U electrolytes, cbc in am resp status much improved replace K Nutritional Asmnt/Malnutr-PDOC - Dietary Evaluation Malnutrition Findings (Please click <Entered> for more info): Nutritional Asmnt/Malnutrition Start: 03/02/17 12: 17 Text: Status: Complete Freq: Document 03/02/17 12:17 ARMANDO (Rec: 03/02/17 12:33 [id number]) Nutritional Asmnt/Malnutrition Patient General Information Nutritional Screening High Risk Consult Diagnosis PNA, ALOC, AMS, A fib, Sepsis, UTI, Anemia, dyhydration Pertinent Medical Hx/Surgical Hx HTN, DM, CHF, asthma/COPD, CVA /TIA, dyslipidemia, ESRD on dialysis, PEG Subjective Information Consult received for high blood glucose. Pt seen resting in bed, not able to communicate, on dialysis during the time of visit. Not able to perform physical exam at this time, pt appeared no fat/muscle wasting on shouder. Spoke with RN, pt is tolerating TF well, no residual noted. Current Diet Order/ Nutrition Support Novosource Renal at 60ml/hr x 20hr daily, providing 2400kcal and 109g pro Pertinent Medications Nacl IV, Vit B, Vit C, folic acid, warfarin Pertinent Labs 03/02 Na 129L, Cl 94L, BUN 84H , Cr 4.9H, Glu 247, A1c 6.2, Alb 3.1L Nutritional Hx/Data Height 1.75 m Height (Calculated Centimeters) 175.3 Current Weight (lbs) 87.747 kg Weight (Calculated Kilograms) 87.7 Weight (Calculated Grams) 89693.4 [place] Body Weight 160 % [place] Body Weight 120 Body Mass Index (BMI) 28.5 GI Symptoms GI Symptoms None Last BM 03/02 x 2 Skin Integrity/Comment: reddened area on left chest, left foot, pressure area on coccyx Estimated Nutritional Goals BEE in Kcals: Using Current wt Calories/Kcals/Kg 30-32 Kcals Calculated 4738-6552 Protein: Using Current wt Protein g/k-1.2 Protein Calculated 88-106 Fluid: ml 7311-3546 or per MD Nutritional Problem 1. Problem Problem altered nutrition related labs values Etiology hx of ESRD and DM Signs/Symptoms: BUN 84H, Cr 4.9H, Glu 247, A1c 6.2 Malnutrition Alert Protein-Calorie Malnutrition N/A Is there a minimum of two criteria No selected? Query Text:Check all the applicable criteria. A minimum of two criteria are recommended for diagnosis of either severe or non-severe malnutrition. Intervention/Recommendation Comments 1. continue with current TF regimen. It provides 1200ml total volume, 2400kcal, 109g protein, 860ml water, meeting 100% of nutritional needs. 2. Monitor TF rate, tolerance, labs, skin integrity and wt daily 3. adjust insulin as needed for optimal glycemic control 4. F/U as high risk in 2-3 days, 03/04-03/05 Expected Outcomes/Goals Expected Outcomes/Goals 1. pt to meet at least 75% of nutritional needs via nutrition support with tolerance 2. wt stability, skin to remain intact, labs to improve
[2017-03-04] MEDS ORDERED: Potassium Chloride 20 mEq ER Tab PO SCH (16:00)
--- NOTE | 2017-03-04 16:57 | Discharge Summary ---
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, Discharge Date: 03/04/17 Discharge Diagnosis: Sepsis resolved, PNA, A-fib, Anemia, Dysphagia, ESRD, DM CRF Laboratory Findings: Laboratory Tests 03/02/17 03/02/17 03/02/17 04:30 04:30 04:30 WBC 14.4 H D RBC 3.64 L Hgb 11.3 L Hct 32.6 L MCV 89.5 MCH 30.9 MCHC Differential 34.6 RDW 17.7 Plt Count 200 MPV 9.5 Band Neutrophils % 2 Neutrophils (Manual) 88 H Lymphocytes 5 L Monocytes 5 Platelet Estimate ADEQUATE PT INR Sodium 129 L Potassium 4.1 Chloride 94 L Carbon Dioxide 27.0 Anion Gap 12.1 BUN 84 H* Creatinine 4.8 H* Est GFR ( Amer) TNP Est GFR (Non-Af Amer) TNP BUN/Creatinine Ratio 17.5 Glucose 247 H POC Glucose Calcium 9.1 Phosphorus 2.9 Magnesium 2.4 Total Bilirubin 0.7 AST 22 ALT 22 Alkaline Phosphatase 141 H Troponin I B-Natriuretic Peptide Total Protein 7.8 Albumin 3.1 L Globulin 4.7 Albumin/Globulin Ratio 0.7 L TSH 5.36 Hepatitis A IgM Ab Hep Bs Antigen Hep B Core IgM Ab Hepatitis C Antibody 03/02/17 03/02/17 03/02/17 04:30 08:00 13:05 WBC RBC Hgb Hct MCV MCH MCHC Differential RDW Plt Count MPV Band Neutrophils % Neutrophils (Manual) Lymphocytes Monocytes Platelet Estimate PT 12.1 H INR 1.15 Sodium Potassium Chloride Carbon Dioxide Anion Gap BUN Creatinine Est GFR ( Amer) Est GFR (Non-Af Amer) BUN/Creatinine Ratio Glucose POC Glucose Calcium Phosphorus Magnesium Total Bilirubin AST ALT Alkaline Phosphatase Troponin I 0.08 H* D 0.07 H* D B-Natriuretic Peptide Total Protein Albumin Globulin Albumin/Globulin Ratio TSH Hepatitis A IgM Ab Hep Bs Antigen Hep B Core IgM Ab Hepatitis C Antibody 03/02/17 03/03/17 03/03/17 13:05 04:40 04:40 WBC 6.2 D RBC 3.70 L Hgb 11.5 L Hct 33.4 L MCV 90.1 MCH 31.0 MCHC Differential 34.4 RDW 17.8 Plt Count 169 MPV 8.8 Band Neutrophils % Neutrophils (Manual) Lymphocytes Monocytes Platelet Estimate PT INR Sodium 130 L Potassium 3.6 Chloride 94 L Carbon Dioxide 26.3 Anion Gap 13.3 BUN 72 H Creatinine 3.5 H Est GFR ( Amer) TNP Est GFR (Non-Af Amer) TNP BUN/Creatinine Ratio 20.6 Glucose 438 H POC Glucose Calcium 9.3 Phosphorus Magnesium Total Bilirubin 0.5 AST 14 ALT 17 Alkaline Phosphatase 139 H Troponin I B-Natriuretic Peptide Total Protein 7.5 Albumin 3.1 L Globulin 4.4 Albumin/Globulin Ratio 0.7 L TSH Hepatitis A IgM Ab Negative Hep Bs Antigen Negative Hep B Core IgM Ab Negative Hepatitis C Antibody 0.1 03/03/17 03/03/17 03/03/17 08:30 11:44 17:36 WBC RBC Hgb Hct MCV MCH MCHC Differential RDW Plt Count MPV Band Neutrophils % Neutrophils (Manual) Lymphocytes Monocytes Platelet Estimate PT 13.1 H INR 1.25 Sodium Potassium Chloride Carbon Dioxide Anion Gap BUN Creatinine Est GFR ( Amer) Est GFR (Non-Af Amer) BUN/Creatinine Ratio Glucose POC Glucose 314 H 382 H Calcium Phosphorus Magnesium Total Bilirubin AST ALT Alkaline Phosphatase Troponin I B-Natriuretic Peptide Total Protein Albumin Globulin Albumin/Globulin Ratio TSH Hepatitis A IgM Ab Hep Bs Antigen Hep B Core IgM Ab Hepatitis C Antibody 03/03/17 03/03/17 03/04/17 21:19 23:22 05:42 WBC RBC Hgb Hct MCV MCH MCHC Differential RDW Plt Count MPV Band Neutrophils % Neutrophils (Manual) Lymphocytes Monocytes Platelet Estimate PT INR Sodium Potassium Chloride Carbon Dioxide Anion Gap BUN Creatinine Est GFR ( Amer) Est GFR (Non-Af Amer) BUN/Creatinine Ratio Glucose POC Glucose 288 H 288 H 433 H Calcium Phosphorus Magnesium Total Bilirubin AST ALT Alkaline Phosphatase Troponin I B-Natriuretic Peptide Total Protein Albumin Globulin Albumin/Globulin Ratio TSH Hepatitis A IgM Ab Hep Bs Antigen Hep B Core IgM Ab Hepatitis C Antibody 03/04/17 03/04/17 03/04/17 05:54 05:54 05:54 WBC 8.8 D RBC 3.75 L Hgb 11.4 L Hct 33.7 L MCV 89.8 MCH 30.5 MCHC Differential 33.9 RDW 17.0 Plt Count 190 MPV 8.7 Band Neutrophils % Neutrophils (Manual) Lymphocytes Monocytes Platelet Estimate PT 16.7 H INR 1.57 H Sodium 132 L Potassium 3.4 L Chloride 95 L Carbon Dioxide 26.7 Anion Gap 13.7 BUN 75 H Creatinine 3.3 H Est GFR ( Amer) TNP Est GFR (Non-Af Amer) TNP BUN/Creatinine Ratio 22.7 Glucose 410 H POC Glucose Calcium 8.9 Phosphorus Magnesium Total Bilirubin 0.4 AST 16 ALT 18 Alkaline Phosphatase 144 H Troponin I B-Natriuretic Peptide Total Protein 7.0 Albumin 2.8 L Globulin 4.2 Albumin/Globulin Ratio 0.7 L TSH Hepatitis A IgM Ab Hep Bs Antigen Hep B Core IgM Ab Hepatitis C Antibody 03/04/17 03/04/17 05:54 12:46 WBC RBC Hgb Hct MCV MCH MCHC Differential RDW Plt Count MPV Band Neutrophils % Neutrophils (Manual) Lymphocytes Monocytes Platelet Estimate PT INR Sodium Potassium Chloride Carbon Dioxide Anion Gap BUN Creatinine Est GFR ( Amer) Est GFR (Non-Af Amer) BUN/Creatinine Ratio Glucose POC Glucose 385 H Calcium Phosphorus Magnesium Total Bilirubin AST ALT Alkaline Phosphatase Troponin I B-Natriuretic Peptide 2040.0 H Total Protein Albumin Globulin Albumin/Globulin Ratio TSH Hepatitis A IgM Ab Hep Bs Antigen Hep B Core IgM Ab Hepatitis C Antibody Hospital Course: Patient was admitted to ICU he received, RBC, IV NS, AB, he was continue with SNF meds, he was seen by Pulmonology, Cardio, and Nephrology. Treatment: hwe received RBC, AB, IV NS, NA, and SNF meds, He was follow by Pulmonology, Cardio and Nephro. Condition at Discharge: Stable Disposition: [facility] (Not SNF) Home Medications: Home Medication Medication Instructions Recorded Type Acetaminophen [Tylenol 650 mg PO Q4HR PRN 03/01/17 History 650mg/20.3mL Suspension] Atorvastatin Calcium [Lipitor] 20 mg GT HS 03/01/17 History Bisacodyl [Dulcolax 10 Mg Supp] 10 RC DAILY PRN 03/01/17 History Lansoprazole [Prevacid] 30 mg GT DAILY 03/01/17 History Levetiracetam [Keppra] 500 GT Q12HRT 03/01/17 History Losartan Potassium [Cozaar] 50 mg GT Q12HR 03/01/17 History Metoclopramide [Reglan] 5 mg GT Q6HR 03/01/17 History Metoprolol Tartrate [Lopressor] 50 mg PO DAILY 03/01/17 History Ondansetron HCl [Zofran] 4 mg GT Q6HR 03/01/17 History Vitamin B Complex w/Vitamin C 1 tab GT DAILY 03/01/17 History amLODIPine Besylate [Norvasc] 5 GT Q12HR 03/01/17 History cloNIDine HCl [Catapres] 0.1 mg PO Q12HR 03/01/17 History Inpatient Medications: Current Medications Acetaminophen (Tylenol 650mg/20.3ml Suspension) 650 mg PO Q4HR PRN PRN Reason: Pain or Fever >101 Stop: 04/30/17 19:39 Last Admin: 03/03/17 15:37 Dose: 650 mg Albuterol/Ipratropium (Duoneb Neb) 1.5 ml HHN Q6HR [facility] Stop: 04/30/17 18:59 Last Admin: 03/04/17 11:35 Dose: 1.5 ml Atorvastatin Calcium (Lipitor) 20 mg PO HS [facility] Stop: 04/30/17 20:59 Last Admin: 03/03/17 21:52 Dose: 20 mg Carvedilol (Coreg) 12.5 mg PO BID [facility] Stop: 04/30/17 19:44 Last Admin: 03/04/17 16:42 Dose: Not Given Diltiazem HCl (Cardizem) 10 mg IVP Q4H PRN PRN Reason: HR ABOVE 130 Stop: 04/30/17 21:44 Diltiazem HCl (Cardizem) 30 mg PO Q8HR [facility] Stop: 05/01/17 04:59 Last Admin: 03/04/17 12:47 Dose: 30 mg Guaifenesin/Dextromethorphan (Robitussin Dm) 5 ml PO Q6HR PRN PRN Reason: Cough Stop: 04/30/17 23:29 Last Admin: 03/03/17 02:37 Dose: 5 ml Levofloxacin (Levaquin Pb) 500 mg in 100 mls @ 100 mls/hr IV Q48HR [facility] Stop: 05/02/17 08:59 Last Infusion: 03/03/17 13:10 Dose: Infused Ceftriaxone Sodium 1 gm/ (Sodium Chloride) 50 mls @ 100 mls/hr IV Q24HR [facility] Stop: 05/01/17 12:44 Last Admin: 03/04/17 12:48 Dose: 100 mls/hr Insulin Aspart (Novolog Insulin Sliding Scale) 0 units SUBQ Q6HR [facility] PRN Reason: Protocol Stop: 05/02/17 06:44 Last Admin: 03/04/17 13:08 Dose: 10 units Insulin Detemir (Levemir Insulin) 20 units SUBQ DAILY [facility] PRN Reason: Protocol Stop: 05/03/17 12:59 Last Admin: 03/04/17 13:15 Dose: 20 units Levetiracetam (Keppra) 500 mg NG BID [facility] Stop: 05/01/17 16:59 Last Admin: 03/04/17 16:41 Dose: 500 mg Lorazepam (Ativan) 0.5 mg GT Q8H PRN; Protocol PRN Reason: Agitation Stop: 04/30/17 21:17 Last Admin: 03/03/17 15:37 Dose: 0.5 mg Lorazepam (Ativan) 1 mg IVP Q6HR PRN; Protocol PRN Reason: Anxiety Stop: 05/01/17 13:24 Last Admin: 03/03/17 23:23 Dose: 1 mg Methylprednisolone Sodium Succinate (Solu-Medrol) 40 mg IVP Q6HR [facility] Stop: 05/01/17 00:00 Last Admin: 03/04/17 12:47 Dose: 40 mg Miscellaneous (Clinical Monitoring) 1 [facility] DAILY PRN PRN Reason: RENAL Stop: 04/30/17 17:00 Miscellaneous (Probiotic Screen) 1 ea PRN PRN PRN Reason: PROTOCOL Stop: 05/02/17 14:57 Mupirocin (Bactroban Oint) 1 appl NS BID [facility] Stop: 03/07/17 17:01 Last Admin: 03/04/17 16:42 Dose: 1 appl Ondansetron HCl (Zofran Odt) 4 mg PO Q6H PRN PRN Reason: Nausea / Vomiting Stop: 04/30/17 20:01 Pantoprazole Sodium (Protonix) 40 mg GT DAILY [facility] Stop: 05/01/17 08:59 Last Admin: 03/04/17 09:35 Dose: 40 mg Potassium Chloride (Klor-Con) 20 meq PO DAILY [facility] Stop: 05/03/17 15:59 Last Admin: 03/04/17 16:41 Dose: 20 meq Vitamin B Complex/Vit C/Folic Acid (Vitamin B Complex W/Vitamin C) 1 tab GT DAILY [facility] Stop: 05/01/17 08:59 Last Admin: 03/04/17 09:34 Dose: 1 tab Warfarin Sodium (Coumadin Per Pharmacy) 1 ea [facility]KEL PRN PRN; Protocol PRN Reason: RX MONITORING Stop: 04/30/17 19:19 Activity: Bed Rest Discharge Diet: Tube Feeding Consults and Follow-Up: ELOY CELAYA [Other] not on staff,PCP is [Primary Care Provider] - Consulting Speciality: Cardiac, Renal, Pulmonary
[2017-03-04] MEDS: Atorvastatin Calcium 10 MG TAB PO SCH (21:09)
== END 2017-03-04 23:00 | DRG 871 ==
LOC: ER 12:23 → TELE 16:02 → ERII 23:39 → ICU 23:41 → TELE 03-03 18:12
PROVIDERS: ADMIT General Practice; ATTEND General Practice
PROC: 5A1D70Z Performance of Urinary Filtration, Intermittent, Less than 6 Hours Per Day (ICD-10-PCS; principal; 2017-03-02)
PROC: 5A1D70Z Performance of Urinary Filtration, Intermittent, Less than 6 Hours Per Day (ICD-10-PCS; 2017-03-03)
DX: A41.9 Sepsis, unspecified organism (principal); L89.153 Pressure ulcer of sacral region, stage 3; J96.10 Chronic respiratory failure, unspecified whether with hypoxia or hypercapnia; J18.9 Pneumonia, unspecified organism; Z93.0 Tracheostomy status; E11.22 Type 2 diabetes mellitus with diabetic chronic kidney disease; R13.10 Dysphagia, unspecified; E11.51 Type 2 diabetes mellitus with diabetic peripheral angiopathy without gangrene; N18.6 End stage renal disease; I13.0 Hypertensive heart and chronic kidney disease with heart failure and stage 1 through stage 4 chronic kidney disease, or unspecified chronic kidney disease; E87.1 Hypo-osmolality and hyponatremia; N39.0 Urinary tract infection, site not specified; J44.0 Chronic obstructive pulmonary disease with (acute) lower respiratory infection; I69.351 Hemiplegia and hemiparesis following cerebral infarction affecting right dominant side; E11.65 Type 2 diabetes mellitus with hyperglycemia; I50.9 Heart failure, unspecified; Y95 Nosocomial condition; E03.9 Hypothyroidism, unspecified; N40.0 Benign prostatic hyperplasia without lower urinary tract symptoms; K21.9 Gastro-esophageal reflux disease without esophagitis; E78.5 Hyperlipidemia, unspecified; E86.0 Dehydration; I48.2 Chronic atrial fibrillation; D63.1 Anemia in chronic kidney disease; L89.892 Pressure ulcer of other site, stage 2; Z88.8 Allergy status to other drugs, medicaments and biological substances; Z99.2 Dependence on renal dialysis; Z93.1 Gastrostomy status; Z82.49 Family history of ischemic heart disease and other diseases of the circulatory system
CPT/HCPCS: 36415-UA; 70450-TC; 71010-TC; 80053-TC; 80061-TC; 80074-90; 81001-TC; 82550-TC; 82948-90; 83036-90; 83605; 83735-TC; 83880-TC; 84100-TC; 84443-TC; 84484-TC; 85007-TC; 85025-TC; 85027-TC; 85610-TC; 85730-TC; 87070; 87086-90; 90779; 93005; 94640; 94760; J0696; J1160; J1644; J1815; J1940; J1956; J2060; J2920; J7030; P9046; Z7610